=== PATIENT | female | born 1935 | race Caucasian/White ===

== ENCOUNTER 2016-08-23 15:40 | Emergency (ER) | payer MEDICARE, BC ==
--- NOTE | 2016-08-23 17:27 | ED ---
Extremity Problem HPI - General Chief complaint: Extremity Problem,Nontraumatic Stated complaint: sciatica Time Seen by Provider: 08/23/16 17:04 Source: patient Mode of arrival: wheelchair Limitations: physical limitation - History of Present Illness Initial comments: Patient is an 81-year-old female with a past medical history of chronic sciatica for which she's been on gabapentin for 10 years as well as chronic arthritis for which she is followed with multiple orthopedic surgeons with consideration of left knee replacement in the near future. Patient presents to the emergency department from her PCPs office today for evaluation of worsening left knee pain. Patient states that due to her chronic diarrhea she has been resistant to the idea of having surgery because she is concerned about how she will care for herself in the postoperative period. Patient states that over the past few months for sciatica has been chronically worsening, she has seen her primary care physician and her gabapentin dose is been increased. However patient reports that she suffers from chronic sciatica pain. The pain is unchanged in quality and persists. The pain as a burning that radiates from her left buttock down to her leg. Patient reports she is followed closely with her PCP for this pain. Reports that she is concerned that no one is addressing the pain due to her sciatica because of her knee, she feels that her primary care and her orthopedic surgeons are all focused on convincing her to have a knee replacement. However she doesn't feel that anybody is addressed her sciatic pain. Patient states she saw her primary care physician earlier today they became concerned that her knee seemed to be angled and told her to come to the emergency department for x-rays. - Related Data Home Medications Medication Instructions Recorded Confirmed Celecoxib [CeleBREX] 200 mg PO DAILY 04/13/15 08/23/16 Hair Skin And Nails 1 tab PO BID 04/13/15 08/23/16 Acetaminophen [Tylenol] 500 mg PO Q4-6H PRN 08/23/16 08/23/16 Gabapentin [Neurontin] 400 mg PO TID 08/23/16 08/23/16 Hydrochlorothiazide 25 mg PO DAILY 08/23/16 08/23/16 Allergies Allergy/AdvReac Type Severity Reaction Status Date / Time amoxicillin trihydrate Allergy Unknown Verified 08/23/16 16:52 [From Augmentin] potassium clavulanate Allergy Unknown Verified 08/23/16 16:52 [From Augmentin] NARCOTICS Allergy Unknown Uncoded 08/23/16 17:13 Review of Systems ROS Statement: Those systems with pertinent positive or pertinent negative responses have been documented in the HPI. ROS Other: All systems not noted in ROS Statement are negative. Constitutional: Denies: fever, chills Eyes: Denies: vision change Respiratory: Denies: cough, dyspnea Cardiovascular: Denies: chest pain, palpitations Endocrine: Denies: fatigue Gastrointestinal: Reports: diarrhea (Patient reports approximately 7 bowel movements daily, this is chronic and normal for her). Denies: nausea, vomiting Genitourinary: Denies: dysuria, frequency Musculoskeletal: Reports: as per HPI, back pain, arthralgia Skin: Denies: rash, lesions Neurological: Denies: headache, weakness, numbness Psychiatric: Denies: depression Hematological/Lymphatic: Denies: easy bleeding, easy bruising Past Medical History Past Medical History: Osteoarthritis (OA) Additional Past Medical History / Comment(s): radiation tc to thyroid in past, uti, sciatica, pt stated after her hysteretomy sx she was told they had to restart her heart. History of Any Multi-Drug Resistant Organisms: None Reported Past Surgical History: Bowel Resection, Hernia Repair, Hysterectomy, Orthopedic Surgery Additional Past Surgical History / Comment(s): lt hand sx took bone from rt hip to use to make new pinky, oral sx, noncancerous lump removed lt face, sandi cataracts, lt benign lump removed from lt breast. Past Anesthesia/Blood Transfusion Reactions: No Reported Reaction Past Psychological History: No Psychological Hx Reported Smoking Status: Never smoker Past Alcohol Use History: Occasional Past Drug Use History: None Reported - Past Family History Mother Family Medical History: Diabetes Mellitus Father Family Medical History: CVA/TIA, Diabetes Mellitus General Exam Limitations: physical limitation General appearance: alert, in no apparent distress Head exam: Present: atraumatic, normocephalic, normal inspection Eye exam: Present: normal appearance, PERRL, EOMI. Absent: scleral icterus, conjunctival injection, periorbital swelling ENT exam: Present: mucous membranes moist Neck exam: Absent: meningismus Respiratory exam: Absent: normal lung sounds bilaterally, respiratory distress Cardiovascular Exam: Present: normal rhythm GI/Abdominal exam: Present: soft. Absent: distended Rectal exam: Present: deferred Extremities exam: Present: normal capillary refill, joint swelling. Absent: pedal edema, calf tenderness Left Hip exam: Absent: crepitus Upper Leg exam: Absent: tenderness, swelling, abrasion, laceration, ecchymosis Knee exam: Present: crepitus, effusion, full knee extension. Absent: abrasion, laceration, ecchymosis, erythema Lower Leg exam: Absent: erythema, palpable cord Neurovascular tendon exam: Absent: abnormal cap refill, sensory deficit, extremity cold to touch, pallor, foot drop Gait: antalgic Back exam: Present: other (kyphosis) Neurological exam: Present: alert, oriented X3 Psychiatric exam: Present: normal affect Skin exam: Present: warm, dry, intact, normal color. Absent: rash Course Vital Signs 08/23/16 15:42 Temperature 97.5 F L Pulse Rate 102 H Respiratory 20 Rate Blood Pressure 129/67 O2 Sat by Pulse 98 Oximetry - Reevaluation(s) Reevaluation #1: Patient reevaluated after x-rays, x-ray results were discussed with the patient. For instance she is feeling at her baseline. Is eager for discharge home 08/23/16 19:06 Medical Decision Making - Medical Decision Making Patient was seen and evaluated History was provided by patient Physical exam with a left knee effusion, chronic changes of the bilateral feet and knees consistent with severe osteoarthritis. Chronic changes of hands consistent with severe arthritis Patient with no acute complaints or findings Will evaluate with an x-ray of the left knee X-ray reveals significant degenerative changes no acute fractures or dislocations Results were discussed with the patient Had a long conversation with the patient regarding the need to follow up with primary care as well as orthopedics. Patient states upset that nobody has addressed her sciatica and orthopedic surgeon seemed to be eager to operate on her. I advised the patient that it is possible her antalgic gait is worsening her hip pain and sciatic symptoms. I advised her to discuss this with her primary care and orthopedic surgeons. states she has been compliant with her medications but continues to experience sciatica, she does state that she was previously doing physical therapy for sciatica, however she reports that she had stopped doing the exercises after her symptoms improved previously. Patient reports that she talk to her orthopedic surgeons who advised her to avoid exercise or walking too much and so she has not resumed doing any sciatica physical therapy or exercises. Patient does state that she can do all of the exercises from a sitting position, none of them involves standing or squatting. I advised the patient to follow up with her primary care provider to discuss whether or not it would be safe for her to resume her sciatica exercises as these seem to improve her symptoms in the past. I advised her that she may benefit from formal physical therapy again, patient is resistant to this that she feels as though she has done it enough times to do on her own. All questions pertaining to care were answered to the best of my ability and the patient was discharged home with planned follow-up primary care and orthopedics for treatment of her chronic arthritis pain. Disposition Clinical Impression: Arthritis, Sciatica Disposition: HOME SELF-CARE Condition: Good Instructions: Osteoarthritis (ED), Sciatica (ED) Referrals: Vianca Saeed MD [Primary Care Provider] - 1-2 days
--- NOTE | 2016-08-23 18:45 | XR ---
EXAMINATION TYPE: XR knee 4V LT DATE OF EXAM: 08/23/2016 COMPARISON: NONE HISTORY: Pain without known injury TECHNIQUE: 4 views FINDINGS: There is end-stage joint space narrowing of the lateral compartment with [id number] and s ubchondral sclerosis and osteophytic spur formation, in addition to apex medial angulation at the fem oral tibial articulation. It is also evident intra-articular ossified loose bodies. The anterior compartment shows moderate-marked osteoarthritis changes. There is no fracture and no malalignment. IMPRESSION: Marked degenerative abnormalities.
[2016-08-23 19:50] VITALS: BP 144/66; PULSE 83; RESP 18; TEMP 97.9
== END 2016-08-23 19:50 | disposition home or self-care (01) ==
LOC: EC 15:40
DX: M17.0 Bilateral primary osteoarthritis of knee (principal); M19.071 Primary osteoarthritis, right ankle and foot; M19.072 Primary osteoarthritis, left ankle and foot; M19.041 Primary osteoarthritis, right hand; M19.042 Primary osteoarthritis, left hand; M54.32 Sciatica, left side; M40.209 Unspecified kyphosis, site unspecified; Z79.1 Long term (current) use of non-steroidal anti-inflammatories (NSAID); Z79.899 Other long term (current) drug therapy; Z88.0 Allergy status to penicillin; Z88.5 Allergy status to narcotic agent; Z98.890 Other specified postprocedural states
CPT/HCPCS: 99283

== ENCOUNTER → 2016-12-25 | Outpatient (CLI) | payer MEDICARE, BC ==
[~2016-12-25] MED LIST: REGADENOSON 0.4 MG/5 ML SYRINGE IV ONE
--- NOTE | 2016-12-25 12:29 | EST ---
EXERCISE STRESS AGE: 81 SEX: F HT: 64" WT: 140 PROTOCOL: Lexiscan Cardiolite Stress Test HEART RATE REST: 70 BLOOD PRESSURE REST: 136/77 MAXIMUM HEART RATE ACHIEVED: 102 MAXIMUM BLOOD PRESSURE: 127/69 85% MPHR: 117 100% MPHR: 138 INDICATIONS: Preoperative. CLINICAL INFORMATION: Patient was given Lexiscan injection over a period of 15 seconds. Peak heart rate of 102 was achieved, maximum blood pressure of 127/69 mmHg was noted. Resting EKG shows normal sinus rhythm with normal MO interval and QRS duration and normal ST-T waves. No ST-segment depression suggestive of ischemia was noted. The results of the nuclear study will follow. MMAILYN / BARRYN: [id number] /
--- NOTE | 2016-12-25 13:32 | NM ---
EXAMINATION TYPE: NM stress lexiscan cardiolite DATE OF EXAM: 12/25/2016 COMPARISON: NONE HISTORY: Abnormal EKG and cough per order. Additional symptoms of difficulty in breathing and palpita tions per patient. TECHNIQUE: After the intravenous administration of 10.3 mCi Tc 99m Sestamibi - Cardiolite resting SP ECT images acquired 50 minutes post injection. The patient received 0.4mg Lexiscan, 29.4 mCi Tc 99m Sestamibi - Stress images obtained [address] injection FINDINGS: Review of stress and rest SPECT images demonstrates no distinct perfusion abnormality. Gated analysi s shows normal wall motion with an estimated left ventricular ejection fraction of 72 %. IMPRESSION: No scintigraphic evidence for reversible ischemia.
== END | disposition home or self-care (01) ==
LOC: RADNMMAIN 09:01
PROVIDERS: ATTEND Internal Medicine
DX: Z01.810 Encounter for preprocedural cardiovascular examination (principal); R94.31 Abnormal electrocardiogram [ECG] [EKG]; R06.02 Shortness of breath
CPT/HCPCS: 94726; 94729; 94060; 93017; 78452; A9500; J2785; 36415; 80053; 81001; 85027; 85610; 85730; 87070

== ENCOUNTER → 2016-12-25 | Outpatient (CLI) | payer MEDICARE, BC ==
[2016-12-25 11:56] LABS: CH 29.7; CHCM 32.3; HCT 46.1 % (34.0-46.0); HDW 2.45; HGB 14.7 gm/dL (11.4-16.0); MCH 29.4 pg (25.0-35.0); MCHC 31.8 g/dL (31.0-37.0); MCV 92.4 fL (80.0-100.0); Mean Platelet Volume 7.3; RBC 4.99 m/uL (3.80-5.40); RDW 13.4 % (11.5-15.5); WBC 6.4 k/uL (3.8-10.6)
[2016-12-25 12:09] LABS: Partial Thromboplastin Time 24.7 sec (22.0-30.0)
[2016-12-25 12:17] LABS: ALT 25 U/L (9-52); AST 25 U/L (14-36); Alkaline Phosphatase 83 U/L (38-126); Anion Gap 9 mmol/L; Blood Urea Nitrogen 16 mg/dL (7-17); Calcium 9.6 mg/dL (8.4-10.2); Carbon Dioxide 25 mmol/L (22-30); Chloride 105 mmol/L (98-107); Glucose 103 mg/dL (74-99); Non-African American GFR(MDRD) >60 (>60 ml/min/1.73 sqM); Potassium 3.8 mmol/L (3.5-5.1); Sodium 139 mmol/L (137-145); Total Bilirubin 0.6 mg/dL (0.2-1.3); Total Protein 6.6 g/dL (6.3-8.2)
[2016-12-25 12:52] LABS: Appearance,Urine Cloudy (Clear)
[2016-12-25 12:53] LABS: Bilirubin,Urine Negative (Negative); Glucose,Urine (UA) Negative (Negative); Protein,Urine 1+ (Negative)
[2016-12-25 12:54] LABS: Leukocyte Esterase,Urine Large (Negative); Nitrite,Urine Positive (Negative); Specific Gravity,Urine 1.005 (1.001-1.035); UA Billing (MACRO vs. MICRO) MICRO; Urobilinogen,Urine 0.2 mg/dL (<2.0)
[2016-12-25 13:02] LABS: RBC,Urine 5 /hpf (0-5); WBC,Urine 25 /hpf (0-5)
[2016-12-25 13:03] LABS: Bacteria,Urine Many /hpf; Squamous Epithelial Cell,Urine 15 /hpf (0-4)
== END | disposition home or self-care (01) ==
LOC: LABPAT 11:29
PROVIDERS: ATTEND Orthopaedic Surgery
DX: Z01.812 Encounter for preprocedural laboratory examination (principal)
CPT/HCPCS: 36415; 80053; 81001; 85027; 85610; 85730; 87070

== ENCOUNTER → 2017-02-18 | Outpatient (CLI) | payer MEDICARE, BC ==
[2017-02-18 15:45] LABS: Iron Saturation 21.69 (12.00-45.00)
== END | disposition home or self-care (01) ==
LOC: LABWHC1 09:37
PROVIDERS: ATTEND Internal Medicine
DX: D64.9 Anemia, unspecified (principal); E55.9 Vitamin D deficiency, unspecified; I10 Essential (primary) hypertension
CPT/HCPCS: 36415; 82306; 83540; 83550

== ENCOUNTER → 2017-02-18 | Outpatient (CLI) | payer MEDICARE, BC ==
[2017-02-18 10:49] LABS: HCT 45.1 % (34.0-46.0); HGB 14.5 gm/dL (11.4-16.0); MCH 29.2 pg (25.0-35.0); MCHC 32.1 g/dL (31.0-37.0); MCV 91.1 fL (80.0-100.0); Mean Platelet Volume 6.5; Platelet Count 289 k/uL (150-450); RBC 4.96 m/uL (3.80-5.40); RDW 13.7 % (11.5-15.5); WBC 5.3 k/uL (3.8-10.6)
[2017-02-18 10:55] LABS: Partial Thromboplastin Time 23.6 sec (22.0-30.0); Prothrombin Time 9.6 sec (9.0-12.0)
[2017-02-18 10:59] LABS: ALT 27 U/L (9-52); AST 20 U/L (14-36); Albumin 4.3 g/dL (3.5-5.0); Alkaline Phosphatase 87 U/L (38-126); Anion Gap 8 mmol/L; Blood Urea Nitrogen 15 mg/dL (7-17); Calcium 9.8 mg/dL (8.4-10.2); Carbon Dioxide 28 mmol/L (22-30); Chloride 100 mmol/L (98-107); Glucose 114 mg/dL (74-99); Potassium 4.4 mmol/L (3.5-5.1); Sodium 136 mmol/L (137-145); Total Bilirubin 0.5 mg/dL (0.2-1.3); Total Protein 6.8 g/dL (6.3-8.2)
[2017-02-18 12:10] LABS: Appearance,Urine Clear (Clear); Bilirubin,Urine Negative (Negative); Blood,Urine Negative (Negative); Color,Urine Yellow; Glucose,Urine (UA) Negative (Negative); Ketones,Urine Negative (Negative); Leukocyte Esterase,Urine Trace (Negative); Mucus,Urine Rare /hpf; Nitrite,Urine Negative (Negative); PH, Urine 6.5 (5.0-8.0); Protein,Urine Negative (Negative); Specific Gravity,Urine 1.013 (1.001-1.035); Squamous Epithelial Cell,Urine <1 /hpf (0-4); Urobilinogen,Urine <2.0 mg/dL (<2.0); WBC,Urine 1 /hpf (0-5)
== END | disposition home or self-care (01) ==
LOC: LABPAT 09:39
PROVIDERS: ATTEND Orthopaedic Surgery
DX: Z01.818 Encounter for other preprocedural examination (principal); Z01.812 Encounter for preprocedural laboratory examination
CPT/HCPCS: 36415; 80053; 81001; 82306; 83540; 83550; 85027; 85610; 85730; 87070; 93005

== ENCOUNTER 2017-03-05 09:50 | Inpatient (IN) | payer MEDICARE, BC ==
[2017-02-20 17:13] VITALS: BMI 24.0
[~2017-03-05 09:50] MED LIST changes: +ACETAMINOPHEN TAB 500 MG TAB PO ONE; +LIDOCAINE 1% 20 ML VIAL (10MG/ML) FOR IV START INTRADERMA PRN; +MELOXICAM 7.5 MG TAB PO ONE; +ONDANSETRON 4 MG/2 ML VIAL IVP ONE; -REGADENOSON 0.4 MG/5 ML SYRINGE IV ONE; +ROPIVACAINE 246.25 MG, EPINEPHrine 0.5 MG, KETOROLAC 30 MG, cloNIDine HCL/PF 80 MCG, WA... MISCELLANE ONE; +TRANEXAMIC ACID 1,000 MG in SODIUM CHLORIDE 0.9% 50 ML IVPB ONE; +ceFAZolin IN SWFI 2 GM/20 ML SYRINGE IVP ONE; +fentaNYL (PF) 50 MCG/ML 2 ML AMP IV PRN
[2017-03-05] MEDS: LACTATED RINGERS 1,000 ML IV SCH (10:28)
[2017-03-05] MEDS ORDERED: DEXAMETHASONE SOD PHOS (MDV) 100 MG/10 ML VIAL IV ONE (10:30)
[2017-03-05] MEDS ORDERED: MIDAZOLAM 2 MG/2 ML VIAL IV ONE (10:54)
[2017-03-05] MEDS ORDERED: ROPIVACAINE 1,100 MG, SODIUM CHLORIDE 0.9% 330 ML MISCELLANE PRN ×2 (11:10)
--- NOTE | 2017-03-05 11:10 | P.ONQ ---
Anesthesiology Proc Note - PNB - Peripheral Nerve Block Performed Right Adductor Canal Infusion Time Out Performed: Yes Procedure Start Time: 10:52 Procedure Stop Time: 11:00 Indication: Acute Post-Operative Pain, Requested by physician Sedation Type: Sedate with meaningful contact maintained Preparation: Sterile Dressing Position: Supine Catheter: Indwelling Needle Types: On-Q Needle Size: 100mm (4") Needle Gauge: 20 Technique: Ultrasound Injectate: 0.5% Ropivacaine (see comment for volume) (ropi .5% 20cc) Blood Aspirated: No Pain Paresthesia on Injection Noted: No Resistance on Injection: Normal Events: Uneventful and Well Tolerated
[2017-03-05] MEDS ORDERED: fentaNYL (PF) 50 MCG/ML 2 ML AMP ONE (11:49)
[2017-03-05] MEDS ORDERED: TRANEXAMIC ACID 1,000 MG/10 ML VIAL ONE (11:49)
[2017-03-05] MEDS ORDERED: MIDAZOLAM 2 MG/2 ML VIAL ONE (11:49)
[2017-03-05] MEDS ORDERED: SODIUM CHLORIDE 0.9% 100 ML BAG ONE (11:49)
[2017-03-05] MEDS ORDERED: ceFAZolin 1,000 MG in SODIUM CHLORIDE 0.9% 1,000 ML IRRIGATION ONE ×4 (11:49)
[2017-03-05] MEDS ORDERED: PHENYLEPHRINE-0.9% NACL SYG 1 MG/10 ML SYRINGE ONE (11:49)
[2017-03-05] MEDS ORDERED: NA PHOS,M-B/NA PHOS,DI-BA 133 ML ENEMA RECTAL PRN (11:52)
[2017-03-05] MEDS ORDERED: MAGNESIUM HYDROXIDE 2,400 MG/10 ML CUP PO PRN (11:52)
[2017-03-05] MEDS ORDERED: ONDANSETRON 4 MG/2 ML VIAL IVP PRN (11:52)
[2017-03-05] MEDS ORDERED: traMADol 50 MG TAB PO PRN (11:52)
[2017-03-05] MEDS ORDERED: BISACODYL 10 MG SUPP RECTAL PRN (11:52)
[2017-03-05] MEDS ORDERED: hydrOXYzine PAMOATE 25 MG CAP PO PRN (11:52)
[2017-03-05] MEDS ORDERED: DIAZEPAM 5 MG TAB PO PRN ×2 (11:52)
[2017-03-05] MEDS ORDERED: HYDROmorphone 0.5 MG/0.5 ML SYRINGE IVP PRN ×3 (11:52)
[2017-03-05] MEDS ORDERED: NALOXONE 0.4 MG/ML 1 ML VIAL IV PRN (11:52)
[2017-03-05] MEDS ORDERED: HYDROmorphone 2 MG/ML 1 ML SYRINGE IVP PRN (11:52)
--- NOTE | 2017-03-05 13:12 | P.OP ---
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 The articulation is Oxinium on polyethylene. Anesthesia: spinal Surgeon: Curt Monroy [employer]orer [employer]: Cindy Palmer Estimated Blood Loss (ml): 50 Pathology: other (Bone and cartilage) Condition: stable Disposition: PACU Indications for Procedure: After failure of conservative treatment we discussed the surgical and nonsurgical treatment options at length. Patient wishes to proceed with a total knee arthroplasty. Complications specific to this procedure were discussed at length, including but not limited to infection, bleeding, stiffness , and nerve injury. Patient is aware of all these complications and informed consent was obtained Operative Findings: The operative findings are consistent with severe osteoarthritis of the left knee with a severe valgus deformity Description of Procedure: Patient was seen in the preoperative area consent was reviewed and operative site was marked with a skin marker. Patient was then brought to the operating room and given preoperative antibiotics intravenously. A spinal anesthetic was administered by the anesthesia department. A tourniquet was placed on the upper thigh and the lower extremity was prepped and draped in usual sterile fashion. A gram of transexamic acid was given. A universal timeout was then performed which confirmed the patient's name, surgical site, ALLERGIES, and consent. The lower extremity was then exsanguinated and tourniquet was inflated to 250 mmHg. A standard and anterior midline approach to the knee was performed. The skin and subcutaneous tissue was dissected down to the patellar tendon. A medial parapatellar arthrotomy was then performed. The knee was then extended, the patellar was everted, and the knee was again flexed. Anterior horns of both menisci were excised, and a minimal medial release was performed because of the valgus deformity of the knee.. On gross visual inspection, there was complete loss of articular cartilage in all 3 compartments of the knee. There was also significant cartilage damage in the lateral compartment. There were multiple periarticular osteophytes which were then removed with a Ronguer. The femoral canal was then opened with the appropriate drill, and the intramedullary femoral cutting guide was then placed and set for 4 of valgus. The distal femoral cutting block was then pinned in place, and the distal femur was then cut. The cutting block was then removed and the cut was checked for flatness. Next, the sizing guide was then placed and set for 3 external rotation based off of the epicondylar axis and Whitesides line. After the femur was sized, the appropriate 4-in-1 cutting block was then pinned in place. The anterior condyles were cut without notching. The posterior and chamfer cuts were performed while protecting the collateral ligaments. The cutting block was then removed. Attention was then directed to the tibia. The remaining ACL was removed with a Ronguer, and the tibia was then gently subluxed forward with a large bent knee retractor. Any remaining menisci was excised. The posterior lateral corner was cauterized in order to cauterize the lateral geniculate artery. The extra medullary tibial cutting guide was then placed, set for the appropriate rotation , slope, and depth of resection. The proximal tibia cutting guide was then pinned in place. Proximal tibia was then cut and sized. The femoral trial was then placed. Next trials were then placed with the appropriate-sized insert. The knee was able to fully extend and flex to 130 and was stable throughout all range of motion. The knee was then extended, patella everted. Patella was then measured, and then using an osteotomy guide, the patella was cut at the appropriate level. The patella was then measured and drilled and the patella trial was then placed. The knee was then taken through range of motion with the patella trial and the patella tracked normally. The knee was then extended patella trial was then removed and the patella was everted. Knee was then flexed and lug holes were drilled through the femoral trial and the femoral trial was then removed. The tibial was then exposed, and the tibial broach guide was then pinned in place after it was set for the appropriate rotation to allow for the most coverage without overhang. The tibia was then broached. The cut surfaces of bone were then irrigated with pulsatile lavage. The posterior structures were injected with the ropivacaine solution. The components were then opened, the cement was mixed, and the components were then cemented in place. The cement was allowed to harden with the knee in full extension. While the cement was hardening, the remaining soft tissues were injected with the ropivacaine solution. After the cemented hardened. The tourniquet was released, and hemostasis was obtained. A second gram of transexamic acid was given. The knee was again irrigated. The knee was again taken through range of motion and found to be stable throughout all range of motion of 0-130, and the patella tracked normally. The fascia was then closed with #2 strata fix suture. The subcutaneous tissue was closed with 3-0 Vicryl and 3-0 strata fix. Dermabond glue was used for the skin, and the patient was placed in a sterile silver dressing. Patient was then transferred to recovery room in stable condition. The study assistant ALLAN Robles was required due the complexity surgery and the need for a skilled surgical forceps fabricator. She assisted in positioning, draping, retraction, and closure of the woundclosure of the wound.
--- NOTE | 2017-03-05 14:10 | XR ---
EXAMINATION TYPE: XR knee limited RT DATE OF EXAM: 03/05/2017 COMPARISON: NONE TECHNIQUE: Two views submitted HISTORY: Post op FINDINGS: There is a prosthetic knee in near anatomic alignment. There is soft tissue edema and emphysema. IMPRESSION: 1. Postoperative change. Appears in near-anatomic alignment
--- NOTE | 2017-03-05 18:03 | P.CONS ---
History of Present Illness - Reason for Consult Consult date: 03/05/17 Medical management - Chief Complaint Right knee pain - History of Present Illness 81-year-old female patient with chronic stable medical conditions including skin cancer, hypertension, osteoarthritis who presented today for right total knee arthroplasty, conservative management was tried and failed to control patient's symptoms. Patient just had the surgery done, currently she denied having any pain. Express some concerns regarding narcotic use and history of bowel obstruction. No chest pain , shortness of breath, palpitations nausea or vomiting. She is hungry and asking for food. Hospitalist service has been consulted for medical management of patient's chronic conditions. Review of Systems 12 point review of system performed, negative except HPI. Past Medical History Past Medical History: Hypertension, Osteoarthritis (OA) Additional Past Medical History / Comment(s): Has "short bowel" r/t resection, has very bad time with narcotics and if has constipation only enema's will help. Hx radiation tx to thyroid in past, sciatica, pt stated after her hysterectomy sx she was told they had to restart her heart. History of Any Multi-Drug Resistant Organisms: None Reported Past Surgical History: Bowel Resection, Hernia Repair, Hysterectomy, Joint Replacement, Orthopedic Surgery Additional Past Surgical History / Comment(s): left total knee, lt hand sx took bone from rt hip to use to make new pinky, oral sx, noncancerous lump removed lt face, sandi cataracts, lt benign lump removed from lt breast. Past Anesthesia/Blood Transfusion Reactions: Previous Problems w/ Anesthesia Additional Past Anesthesia/Blood Transfusion Reaction / Comm: heart stopped & had to be restarted after hyst per pt. Past Psychological History: No Psychological Hx Reported Smoking Status: Never smoker Past Alcohol Use History: Rare Past Drug Use History: None Reported - Past Family History Mother Family Medical History: Diabetes Mellitus Father Family Medical History: CVA/TIA, Diabetes Mellitus Medications and Allergies Home Medications Medication Instructions Recorded Confirmed Type Celecoxib [CeleBREX] 200 mg PO DAILY 04/13/15 03/05/17 History Hydrochlorothiazide 25 mg PO DAILY 08/23/16 03/05/17 History Gabapentin [Neurontin] 300 mg PO TID 01/08/17 03/05/17 History Aspirin 325 mg PO BID #60 tab 01/09/17 03/05/17 Rx Albuterol Sulfate [Proair Hfa] 1 - 2 puff INHALATION RT-BID PRN 03/04/17 History Allergies Allergy/AdvReac Type Severity Reaction Status Date / Time amoxicillin trihydrate Allergy Nausea & Verified 03/05/17 17:05 [From Augmentin] Vomiting & Diarrhea/DEHYDRATION potassium clavulanate Allergy Nausea & Verified 03/05/17 17:05 [From Augmentin] Vomiting & Diarrhea/DEHYDRATION tramadol AdvReac SEVERE Verified 03/05/17 17:05 BOWEL BLOCKAGE NARCOTICS AdvReac "SEVERE Uncoded 03/05/17 10:24 bowel blockage" Physical Exam Vitals: Vital Signs Temp Pulse Resp BP Pulse Ox 03/05/17 16:00 76 16 127/60 97 03/05/17 15:30 77 16 130/57 99 03/05/17 15:15 64 18 122/74 96 03/05/17 14:45 78 16 123/57 98 03/05/17 14:30 79 16 98/53 98 03/05/17 14:15 71 16 97/53 98 03/05/17 14:00 69 16 95/53 98 03/05/17 13:45 69 16 95/53 03/05/17 13:34 97.0 F L 70 18 93/50 98 03/05/17 11:46 72 16 96/52 98 03/05/17 11:34 73 16 89/56 99 03/05/17 11:10 78 16 96/57 96 03/05/17 10:18 98.2 F 91 16 118/65 97 Intake and Output 03/05/17 03/05/17 03/05/17 06:59 14:59 22:59 Intake Total 802 Output Total 50 Balance 752 Intake: IV 802 Output: Estimated Blood Loss 50 Other: Weight 63.503 kg Patient Weight 03/06/17 06:59 Weight 63.503 kg Constitutional: No acute distress, conversant, pleasant Eyes:Anicteric sclerae, moist conjunctiva, no lid-lag, PERRLA, ENMT: Oropharynx clear, no erythema, exudates Neck: Supple, FROM, no masses, or JVD, No carotid bruits, No thyromegaly Lungs: Clear to auscultation, Clear to percussion, Normal respiratory effort, no accessory muscle use Cardiovascular: Heart regular in rate and rhythm, No murmurs, gallops, or rubs, No peripheral edema Abdominal: Soft, Nontender, no guarding, rebound or rigidity, Normoactive bowel sounds, No hepatomegaly, No splenomegaly, No palpable mass Skin: Normal temperature, tone, texture, turgor, no induration, No subcutaneous nodules, No rash, lesions, No ulcers Extremities: surgical dressings over the right knee, no digital cyanosis, No clubbing, Pedal pulses intact and symmetrical, Radial pulses intact and symmetrical, No calf tenderness Psychiatric: Alert and oriented to person, place and time, appropriate affect, intact judgement Neuro: Muscles Strength 5/5 in all 4 extremities, Sensation to light touch grossly present throughout, Cranial nerves II-XII grossly intact, no focal sensory deficits Assessment and Plan Plan: 1. Right total knee arthroplasty: Per your surgical management Pain control with meloxicam. Aspirin 325mg po bid for DVT prophylaxis. Physical therapy. 2. Essential hypertension: BP controlled Continue home meds. 3. Primary osteoarthritis of multiple joints bilateral/Chronic Sciatic nerve pain: Meloxicam as above.
[2017-03-05] MEDS: SENNOSIDES-DOCUSATE SODIUM 1 EACH TAB PO SCH (20:35)
[2017-03-05] MEDS: ASPIRIN 325 MG TAB PO SCH (20:35)
[2017-03-05] MEDS: ceFAZolin IN SWFI 2 GM/20 ML SYRINGE IVP SCH (20:35)
[2017-03-06] MEDS: LACTATED RINGERS 1,000 ML IV SCH (04:29)
[2017-03-06] MEDS: ceFAZolin IN SWFI 2 GM/20 ML SYRINGE IVP SCH (04:29)
[2017-03-06] MEDS: SODIUM CHLORIDE 0.9% 1,000 ML IV SCH ×2 (04:30→12:15)
--- NOTE | 2017-03-06 07:12 | P.PN ---
Progress Note - Text Progress Note Date: 03/06/17 Patient is a 81 y.o s/p Right knee replacement PO day 1. Patient had Adductor canal catheter placed for post op pain control. Patient going well. VAS 5/10. Taking oral pain medication. Ambulating without weakness.
[2017-03-06 07:57] LABS: Basophils % (A) 0 %; Eosinophils # (A) 0.1 k/uL (0-0.7); Eosinophils % (A) 1 %; HCT 39.4 % (34.0-46.0); HGB 12.6 gm/dL (11.4-16.0); Lymphocytes # (A) 1.5 k/uL (1.0-4.8); Lymphocytes % (A) 11 %; MCH 29.2 pg (25.0-35.0); MCV 91.1 fL (80.0-100.0); Mean Platelet Volume 7.7; Monocytes # (A) 0.6 k/uL (0-1.0); Monocytes % (A) 4 %; Neutrophils # (A) 11.4 k/uL (1.3-7.7); Neutrophils % (A) 83 %; Platelet Count 230 k/uL (150-450); RBC 4.32 m/uL (3.80-5.40); RDW 14.6 % (11.5-15.5); WBC 13.7 k/uL (3.8-10.6)
--- NOTE | 2017-03-06 08:50 | P.PN ---
Subjective Progress Note Date: 03/06/17 This is an 81-year-old female who is status post right total knee arthroplasty. This is postoperative day #1. Patient states her pain is well-controlled. Patient states she has not been up and out of bed yet. Patient denies any fever/ chills, abdominal pain, shortness of breath, numbness, weakness or tingling. Objective - Vital Signs Vital signs: Vital Signs Temp 97.9 F 03/06/17 07:30 Pulse 86 03/06/17 07:30 Resp 14 03/06/17 07:30 BP 111/68 03/06/17 07:30 Pulse Ox 97 03/06/17 07:30 Intake & Output 03/05/17 03/06/17 03/06/17 18:59 06:59 18:59 Intake Total 802 1520 Output Total 150 Balance 652 1520 Weight 63.503 kg Intake: IV 802 Intake, IV Titration 1040 Amount Sodium Chloride 0.9% 1, 1040 000 ml @ 65 mls/hr IV . [id number] [facility] Rx#:[id number] Other 480 Output: Urine 100 Estimated Blood Loss 50 Other: # Voids 3 - Exam Vital signs are stable. Patient is in no acute distress and is alert and oriented 3. Calf is soft and nontender. Dressing is clean, dry, and intact. Neurovascular status intact. Patient has full foot and ankle motion without difficulty. - Labs CBC & Chem 7: 03/06/17 07:28 Labs: Abnormal Lab Results - Last 24 Hours (Table) 03/06/17 Range/Units 07:28 WBC 13.7 H (3.8-10.6) k/uL Neutrophils # 11.4 H (1.3-7.7) k/uL Assessment and Plan (1) Primary osteoarthritis of right knee Current Visit: Yes Status: Acute Code(s): M17.11 - UNILATERAL PRIMARY OSTEOARTHRITIS, RIGHT KNEE SNOMED Code(s): 759100433 (2) S/P total knee arthroplasty Current Visit: Yes Status: Acute Code(s): Z96.659 - PRESENCE OF UNSPECIFIED ARTIFICIAL KNEE JOINT SNOMED Code(s): 5783991392518 Plan: #1 Continue with routine postoperative care, leave dressing in place for one week #2 Anticoagulation with aspirin. #3 Physical therapy and CPM today. #4 Appreciate input from medicine. #5 Anticipate discharge home with home care likely tomorrow..
[2017-03-06] MEDS: MELOXICAM 7.5 MG TAB PO SCH (09:52)
[2017-03-06] MEDS: ASPIRIN 325 MG TAB PO SCH ×2 (09:52→21:07)
[2017-03-06] MEDS: GABAPENTIN 300 MG CAP PO SCH ×3 (09:52→21:07)
--- NOTE | 2017-03-06 14:44 | P.PN ---
Subjective Progress Note Date: 03/06/17 Principal diagnosis: knee pain Better, no significant pain. Stated that she has been having legs swelling for 2 -3 years and no one told her why. She stated that she did have a doppler U/S in the past but that was negative for clots. Objective - Vital Signs Vital signs: Vital Signs Temp 97.9 F 03/06/17 07:30 Pulse 86 03/06/17 07:30 Resp 14 03/06/17 07:30 BP 111/68 03/06/17 07:30 Pulse Ox 97 03/06/17 07:30 Intake & Output 03/05/17 03/06/17 03/06/17 18:59 06:59 18:59 Intake Total 802 1520 65 Output Total 150 Balance 652 1520 65 Weight 63.503 kg Intake: IV 802 Intake, IV Titration 1040 65 Amount Sodium Chloride 0.9% 1, 1040 65 000 ml @ 65 mls/hr IV . [id number] [facility] Rx#:[id number] Other 480 Output: Urine 100 Estimated Blood Loss 50 Other: # Voids 3 - Exam Constitutional: No acute distress, conversant, pleasant Eyes:Anicteric sclerae, moist conjunctiva, no lid-lag, PERRLA, ENMT: Oropharynx clear, no erythema, exudates Neck: Supple, FROM, no masses, or JVD, No carotid bruits, No thyromegaly Lungs: Clear to auscultation, Clear to percussion, Normal respiratory effort, no accessory muscle use Cardiovascular: Heart regular in rate and rhythm, No murmurs, gallops, or rubs, 1+ peripheral edema Abdominal: Soft, Nontender, no guarding, rebound or rigidity, Normoactive bowel sounds, No hepatomegaly, No splenomegaly, No palpable mass Skin: Normal temperature, tone, texture, turgor, no induration, No subcutaneous nodules, No rash, lesions, No ulcers Extremities: Surgical dressings over the right knee, no digital cyanosis, No clubbing, Pedal pulses intact and symmetrical, Radial pulses intact and symmetrical, No calf tenderness Psychiatric: Alert and oriented to person, place and time, appropriate affect, intact judgement Neuro: Muscles Strength 5/5 in all 4 extremities, Sensation to light touch grossly present throughout, Cranial nerves II-XII grossly intact, no focal sensory deficits - Labs CBC & Chem 7: 01/24/18 07:28 Labs: Abnormal Lab Results - Last 24 Hours (Table) 03/06/17 Range/Units 07:28 WBC 13.7 H (3.8-10.6) k/uL Neutrophils # 11.4 H (1.3-7.7) k/uL Assessment and Plan Plan: 1. Right total knee arthroplasty: Per your surgical management Pain control with meloxicam. Aspirin 325mg po bid for DVT prophylaxis. Physical therapy. 2. Legs edema: Check bnp Check echo as outpatient. Lasix if needed. 2. Essential hypertension: BP controlled Continue home meds. 3. Primary osteoarthritis of multiple joints bilateral/Chronic Sciatic nerve pain: Meloxicam as above.
[2017-03-06] MEDS ORDERED: GABAPENTIN 300 MG CAP PO SCH (16:00)
[2017-03-06] MEDS ORDERED: ASPIRIN 325 MG TAB PO SCH (21:00)
[2017-03-06] MEDS: SENNOSIDES-DOCUSATE SODIUM 1 EACH TAB PO SCH (21:03)
[2017-03-06] MEDS: ACETAMINOPHEN TAB 325 MG TAB PO PRN (21:07)
[2017-03-07] MEDS: ACETAMINOPHEN TAB 325 MG TAB PO PRN ×2 (02:07→08:15)
[2017-03-07 08:06] VITALS: BP 120/72; PULSE 92; RESP 14; TEMP 98.3
[2017-03-07] MEDS: MELOXICAM 7.5 MG TAB PO SCH (08:15)
[2017-03-07] MEDS: GABAPENTIN 300 MG CAP PO SCH (08:15)
[2017-03-07] MEDS: ASPIRIN 325 MG TAB PO SCH (08:15)
[2017-03-07 08:28] LABS: Anion Gap 7 mmol/L; Calcium 8.5 mg/dL (8.4-10.2); Carbon Dioxide 20 mmol/L (22-30); Chloride 107 mmol/L (98-107); Glucose 88 mg/dL (74-99); Sodium 134 mmol/L (137-145)
[2017-03-07 08:29] LABS: Blood Urea Nitrogen 9 mg/dL (7-17); Phosphorus 3.1 mg/dL (2.5-4.5); Potassium 4.4 mmol/L (3.5-5.1)
[2017-03-07] MEDS ORDERED: HYDROCHLOROTHIAZIDE 25 MG TAB PO SCH (09:00)
--- NOTE | 2017-03-07 09:08 | P.DS ---
Providers Date of admission: 03/05/17 09:50 Expected date of discharge: 03/07/17 Attending physician: Curt Monroy Consults: 03/05/17 11:52 Consult Physician Routine Consulting Provider: Maryjane Goff Consult Reason/Comments: medical management Do you want consulting provider notified?: Yes Primary care physician: Stated None - Discharge Diagnosis(es) (1) Primary osteoarthritis of right knee Current Visit: Yes Status: Acute (2) S/P total knee arthroplasty Current Visit: Yes Status: Acute Hospital Course: This is a 81-year-old female with known history of degenerative arthritis of the right knee. The patient presents for evaluation. After discussion and consideration patient elects to proceed with total knee arthroplasty. The patient is seen preoperatively by Dr. Monroy and cleared for surgery. Patient is admitted to [facility] on 03/05/2017 for total knee arthroplasty. The procedures performed without complication or sequelae. The patient is doing well postoperatively. Labs and vital signs are stable on day of discharge. On day of discharge patient's knee incision is healing well. There is minimal erythema. There is no drainage noted at this time. There is minimal soft tissue swelling to the knee. Patient has full foot and ankle motion without difficulty or pain. Neurovascular status to the right lower extremity is intact. Patient is discharged home in good condition. Please see med rec for accurate list of home medications. Plan - Discharge Summary Discharge Rx Participant: No New Discharge Prescriptions: New Aspirin 325 mg PO BID #60 tab Sennosides [Senokot] 1 tab PO BID #60 tablet traMADol HCl [Ultram] 50 mg PO Q6H PRN #60 tab PRN Reason: Pain No Action Celecoxib [CeleBREX] 200 mg PO DAILY Hydrochlorothiazide 25 mg PO DAILY Gabapentin [Neurontin] 300 mg PO TID Aspirin 325 mg PO BID #60 tab Albuterol Sulfate [Proair Hfa] 1 - 2 puff INHALATION RT-BID PRN PRN Reason: Shortness Of Breath Discharge Medication List Celecoxib [CeleBREX] 200 mg PO DAILY 04/13/15 [History] Hydrochlorothiazide 25 mg PO DAILY 08/23/16 [History] Gabapentin [Neurontin] 300 mg PO TID 01/08/17 [History] Aspirin 325 mg PO BID #60 tab 01/09/17 [Rx] Albuterol Sulfate [Proair Hfa] 1 - 2 puff INHALATION RT-BID PRN 03/04/17 [ History] Aspirin 325 mg PO BID #60 tab 03/07/17 [Rx] Sennosides [Senokot] 1 tab PO BID #60 tablet 03/07/17 [Rx] traMADol HCl [Ultram] 50 mg PO Q6H PRN #60 tab 03/07/17 [Rx] Follow up Appointment(s)/Referral(s): Curt Monroy DO [Doctor of Osteopathic Medicine] - 2 Weeks Ambulatory/Diagnostic Orders: Continuous Passive Motion (CPM) Machine [DME.AMB1] Time Frame: 3 Weeks, Location : Determined By Patient Activity/Diet/Wound Care/Special Instructions: Weightbearing as tolerated with a walker CPM 5-6h daily Leave dressing intact. May be removed by home care nurse in 7 days, 03/12/2017. May shower with dressing on. [facility] with questions or concerns [phone] Discharge Disposition: HOME WITH HOME HEALTH SERVICES
[2017-03-07 09:18] LABS: Basophils % (A) 0 %; Eosinophils # (A) 0.1 k/uL (0-0.7); Eosinophils % (A) 2 %; HCT 38.2 % (34.0-46.0); HGB 12.6 gm/dL (11.4-16.0); Lymphocytes # (A) 1.5 k/uL (1.0-4.8); Lymphocytes % (A) 17 %; MCH 29.6 pg (25.0-35.0); MCHC 33.1 g/dL (31.0-37.0); MCV 89.5 fL (80.0-100.0); Mean Platelet Volume 6.8; Monocytes # (A) 0.5 k/uL (0-1.0); Monocytes % (A) 6 %; Neutrophils # (A) 6.5 k/uL (1.3-7.7); Neutrophils % (A) 75 %; Platelet Count 222 k/uL (150-450); RBC 4.27 m/uL (3.80-5.40); RDW 13.8 % (11.5-15.5); WBC 8.7 k/uL (3.8-10.6)
== END 2017-03-07 14:36 | disposition home health service (06) | DRG 470 ==
LOC: 2ORMAIN 09:50 → 3SUR 13:22
PROVIDERS: ADMIT Orthopaedic Surgery; ATTEND Orthopaedic Surgery
PROC: 0SRC069 Replacement of Right Knee Joint with Oxidized Zirconium on Polyethylene Synthetic Substitute, Cemented, Open Approach (ICD-10-PCS; principal; 2017-03-05 11:20)
DX: M17.11 Unilateral primary osteoarthritis, right knee (principal); I10 Essential (primary) hypertension; M21.061 Valgus deformity, not elsewhere classified, right knee; Z79.899 Other long term (current) drug therapy; Z88.1 Allergy status to other antibiotic agents; Z83.3 Family history of diabetes mellitus; Z72.0 Tobacco use; Z79.82 Long term (current) use of aspirin; Z90.710 Acquired absence of both cervix and uterus; Z85.828 Personal history of other malignant neoplasm of skin
CPT/HCPCS: 80048; 83735; 83880; 84100; 85025; 88300

== ENCOUNTER → 2017-12-24 | Outpatient (CLI) | payer MEDICARE, BC ==
--- NOTE | 2017-12-24 19:38 | CT ---
EXAMINATION TYPE: CT chest wo con DATE OF EXAM: 12/24/2017 COMPARISON: NONE HISTORY: Increasing SOB CT DLP: 336.3 mGycm. Automated Exposure Control for Dose Reduction was Utilized. TECHNIQUE: CT scan of the thorax is performed without IV contrast. Evaluation for pulmonary nodules limited given the high-resolution protocol and noncontiguous slices. FINDINGS: LUNGS: There is minimal bibasilar cylindrical type bronchiectasis. Subpleural reticulation is seen th roughout and addition to minimal dependent shifting subsegmental atelectasis. There is minimal biapic al nodular pleural parenchymal thickening. The lungs are grossly clear, there is no concerning parenc hymal mass or nodule identified. There is no pleural effusion or pneumothorax seen. The tracheobro nchial tree is patent. No interlobular septal thickening is seen. No honeycombing. MEDIASTINUM: Lack of IV contrast is noted to limit evaluation for mediastinal and especially hilar ad enopathy. There are no definitive greater than 1 cm hilar or mediastinal lymph nodes. No cardiomega ly or pericardial effusion is seen. OTHER: Moderate multilevel degenerative changes of the thoracic spine are noted. IMPRESSION: Mild bibasilar cylindrical type bronchiectasis. Although differential is lengthy this mos t commonly can be postinfectious without other ancillary findings. Minimal subpleural reticulation an d multifocal atelectasis are also seen. Subpleural reticulation can relate to atelectasis, the physio logic in aging independent of tobacco abuse, or could relate to less likely early fibrosis. No honeyc ombing is seen. No interstitial lung disease.
== END ==
LOC: RADCTMAIN 16:09
PROVIDERS: ATTEND Internal Medicine Critical Care Medicine
DX: J47.9 Bronchiectasis, uncomplicated (principal); Z88.8 Allergy status to other drugs, medicaments and biological substances
CPT/HCPCS: 71250

== ENCOUNTER → 2018-01-24 | Outpatient (CLI) | payer MEDICARE, BC ==
--- NOTE | 2018-01-24 14:26 | CT ---
EXAMINATION TYPE: CT sinus wo con DATE OF EXAM: 01/24/2018 COMPARISON: HISTORY: CHRONIC SINUSITIS CT DLP: 584 mGycm. Automated Exposure Control for Dose Reduction was Utilized. TECHNIQUE: CT scan of the sinuses is performed without contrast, axial images are obtained, coronal r eformatted images are also reviewed. FINDINGS: The paranasal sinuses show inflammatory change in the sphenoid with some associated calcif ication on the left, some focal sclerosis of the sphenoid sinus wall on the left shows a separate michelle mber may be due to chronic sinusitis. Visualized portion of mastoid air cells show no abnormal opacification. The globes are intact bilate rally. Cortical atrophy is likely age-related. IMPRESSION: Findings could be indicative of chronic sphenoid sinusitis.
== END ==
LOC: RADCTMAIN 13:18
PROVIDERS: ATTEND Otolaryngology
DX: J32.9 Chronic sinusitis, unspecified (principal)
CPT/HCPCS: 70486

== ENCOUNTER → 2018-12-10 | Outpatient (CLI) | payer MEDICARE, BC ==
--- NOTE | 2018-12-11 03:54 | XR ---
EXAMINATION TYPE: XR bone length study DATE OF EXAM: 12/10/2018 COMPARISON: NONE TECHNIQUE: 22 images of the bilateral lower extremities. HISTORY: 83-year-old female with a length discrepancy FINDINGS: Mild degenerative spurring of both hips. Additional degenerative change suggested at the right greate r than left SI joints. Bilateral total knee arthroplasties. There is bony fragmentation along the inferior pole of the rebollar la on the left with some thickening along the patellar tendon suggesting sequela of remote injury. Le sser degree of similar changes on the right. Bilateral ankle mortises appear intact. RIGHT: Femur: 45.4 cm Tibia: 38.6 cm Femur and tibia: 84.4 cm LEFT: Femur: 46.1 cm Tibia: 38.3 cm Femur and tibia: 84.8 cm IMPRESSION: 1. Mild degenerative changes of both hips. 2. 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 3. Overall lower extremity length discrepancy of 4 mm as measured with the left being slightly longer . The left femur measures 7 mm longer in the right tibia measures 3 mm longer.
== END | disposition home or self-care (01) ==
LOC: RADXRMAIN 14:37
PROVIDERS: ATTEND Podiatrist Foot & Ankle Surgery
DX: M16.0 Bilateral primary osteoarthritis of hip (principal)
CPT/HCPCS: 77073

== ENCOUNTER → 2018-12-10 | Outpatient (CLI) | payer MEDICARE, BC ==
[2018-12-10 21:12] LABS: Anion Gap 8.2 mmol/L (4.00-12.00); BUN/Creat Ratio 21.67 Ratio (12.00-20.00); Carbon Dioxide 24.8 mmol/L (21.6-31.8); Chol/HDL Ratio 2.77; LDL Cholesterol,Calculated 98.2 mg/dL (0.0-131.0); Potassium 3.8 mmol/L (3.5-5.5); VLDL Calculation 25.8 mg/dL (5.00-40.00)
== END ==
LOC: LABWHC1 14:34
PROVIDERS: ATTEND Physician Assistant
DX: I10 Essential (primary) hypertension (principal); E78.5 Hyperlipidemia, unspecified
CPT/HCPCS: 36415; 80048; 80061; 84443; 84481

== ENCOUNTER 2019-02-03 14:14 | Observation (INO) | payer MEDICARE, BC ==
--- NOTE | 2019-02-03 14:54 | XR ---
EXAMINATION TYPE: XR chest 2V DATE OF EXAM: 02/03/2019 COMPARISON: 04/25/2015 HISTORY: Chest pain TECHNIQUE: 2 views FINDINGS: Heart is normal. Lungs are clear of infiltrate. There is no heart failure. Thoracic aorta i s atheromatous. There is no pleural effusion. Bony thorax is intact. IMPRESSION: No active cardiopulmonary disease. No change.
[2019-02-03 15:05] LABS: Basophils % (A) 1 %; Eosinophils # (A) 0.1 k/uL (0-0.7); Eosinophils % (A) 1 %; HCT 43.2 % (34.0-46.0); HGB 15.1 gm/dL (11.4-16.0); Lymphocytes # (A) 1.9 k/uL (1.0-4.8); Lymphocytes % (A) 25 %; MCH 31.7 pg (25.0-35.0); MCV 90.6 fL (80.0-100.0); Mean Platelet Volume 7.5; Monocytes # (A) 0.4 k/uL (0-1.0); Monocytes % (A) 5 %; Neutrophils % (A) 67 %; Platelet Count 234 k/uL (150-450); RBC 4.77 m/uL (3.80-5.40); RDW 12.9 % (11.5-15.5); WBC 7.5 k/uL (3.8-10.6)
[2019-02-03 15:13] LABS: ALT 15 U/L (4-34); AST 27 U/L (14-36); African American GFR (CKD) >90 (>60 ml/min/1.73 sqM); Albumin 4.1 g/dL (3.5-5.0); Alkaline Phosphatase 88 U/L (38-126); Anion Gap 10 mmol/L; Blood Urea Nitrogen 14 mg/dL (7-17); Calcium 9.6 mg/dL (8.4-10.2); Carbon Dioxide 22 mmol/L (22-30); Chloride 106 mmol/L (98-107); Glucose 97 mg/dL (74-99); Magnesium 2.1 mg/dL (1.6-2.3); Non-African American GFR(CKD) 85 (>60 ml/min/1.73 sqM); Potassium 3.9 mmol/L (3.5-5.1); Sodium 138 mmol/L (137-145); Total Bilirubin 0.6 mg/dL (0.2-1.3); Total Protein 6.5 g/dL (6.3-8.2)
[2019-02-03 15:25] LABS: D-Dimer 0.52 mg/L FEU (<0.60); INR 0.9 (<1.2); Partial Thromboplastin Time 24.2 sec (22.0-30.0); Prothrombin Time 9.8 sec (9.0-12.0)
--- NOTE | 2019-02-03 15:34 | ED ---
Chest Pain HPI - General Chief Complaint: Chest Pain Stated Complaint: chest & arm pain Time Seen by Provider: 02/03/19 14:21 Source: patient, EMS Mode of arrival: EMS - History of Present Illness Initial Comments: 83-year-old female presenting today for chief complaint of left-sided chest pain every down left arm. Patient states that after she left [place] with her family she began to develop chest pain she describes as sharp in nature. She states it radiates to the left arm. Patient denied any radiation to the back. Patient denies any chest pressure. She states that she felt anxious at that time and slightly short of breath. Patient states that shortness of breath has resolved she states she hasn't more so chronically denies any acute changes. Patient denies any leg swelling denied any jaw pain nausea vomiting. Denies history of DVT or active cancer, denies unilateral leg swelling. Patient denies any known history of hypertension or diabetes. Lifetime nonsmoker. Patient denies any known personal history of coronary artery disease. Patient presented to the nearest urgent care where she was sent to the ER by EMS. Patient EKG in the EMS was sinus tachycardia, otherwise no noted abnormalities. Patient given 324mg of aspirin at urgent care, nitroglycerine that helped minimally in the EMS rig. - Related Data Home Medications Medication Instructions Recorded Confirmed Lifitegrast [Xiidra] 1 drop BOTH EYES HS 02/03/19 02/03/19 Vit C/E/Zn/Coppr/Lutein/Zeaxan 1 cap PO QAM 02/03/19 02/03/19 [Preservision Areds 2 Softgel] Vitalux Eye Vitamin 1 tab PO HS 02/03/19 02/03/19 cycloSPORINE 0.05% OPHTH SOLN 1 drop BOTH EYES QAM 02/03/19 02/03/19 [Restasis] Allergies Allergy/AdvReac Type Severity Reaction Status Date / Time amoxicillin trihydrate AdvReac Nausea & Verified 02/03/19 16:20 [From Augmentin] Vomiting & Diarrhea/DEHYDRATION potassium clavulanate AdvReac Nausea & Verified 02/03/19 16:20 [From Augmentin] Vomiting & Diarrhea/DEHYDRATION tramadol AdvReac SEVERE Verified 02/03/19 16:20 BOWEL BLOCKAGE NARCOTICS AdvReac "SEVERE Uncoded 02/03/19 16:20 bowel blockage" Review of Systems ROS Statement: Those systems with pertinent positive or pertinent negative responses have been documented in the HPI. ROS Other: All systems not noted in ROS Statement are negative. Past Medical History Past Medical History: Osteoarthritis (OA) Additional Past Medical History / Comment(s): radiation tc to thyroid in past, uti, sciatica, pt stated after her hysteretomy sx she was told they had to restart her heart. History of Any Multi-Drug Resistant Organisms: None Reported Past Surgical History: Bowel Resection, Hernia Repair, Hysterectomy, Orthopedic Surgery Additional Past Surgical History / Comment(s): lt hand sx took bone from rt hip to use to make new pinky, oral sx, noncancerous lump removed lt face, sandi cataracts, lt benign lump removed from lt breast. Past Anesthesia/Blood Transfusion Reactions: No Reported Reaction Additional Past Anesthesia/Blood Transfusion Reaction / Comment(s): heart stopped & had to be restarted after hyst per pt. Past Psychological History: No Psychological Hx Reported Smoking Status: Never smoker Past Alcohol Use History: Occasional Past Drug Use History: None Reported - Past Family History Mother Family Medical History: Diabetes Mellitus Father Family Medical History: CVA/TIA, Diabetes Mellitus General Exam - General Exam Comments Initial Comments: General: The patient is awake and alert, appear anxious no diaphoresis Eye: +3 mm pupils are equal, round and reactive to light, extra-ocular movements are intact. No nystagmus. There is normal conjunctiva bilaterally. No signs of icterus. Ears, nose, mouth and throat: There are moist mucous membranes and no oral lesions. Neck: The neck is supple, there is no tenderness or JVD. Cardiovascular: There is a regular rate and rhythm. No murmur, rub or gallop is appreciated. Respiratory: Lungs are clear to auscultation, respirations are non-labored, breath sounds are equal. No wheezes, stridor, rales, or rhonchi. Gastrointestinal: Soft, non-distended, non-tender abdomen without masses or organomegaly noted. There is no rebound or guarding present. Musculoskeletal: Normal ROM, no tenderness. Strength 5/5. Sensation intact. Radial pulses equal bilaterally 2+. Neurological: A&O x 3. CN II-XII intact grossly, There are no obvious motor or sensory deficits. Coordination appears grossly intact. Speech is normal. Skin: Skin is warm and dry and no rashes or lesions are noted. No LE edema. Psychiatric: Cooperative, appropriate mood & affect, normal judgment. Course Vital Signs 02/03/19 02/03/19 02/03/19 14:18 14:32 17:02 Temperature 97.5 F L Pulse Rate 82 99 Respiratory 22 22 18 Rate Blood Pressure 131/66 141/79 O2 Sat by Pulse 99 100 Oximetry Chest Pain MDM - MDM 83-year-old female presents today for chief complaint of chest pain began approximately 1 hour prior to arrival. Patient initially presented to urgent care. Described as left-sided sharp rating down the left arm. She states this occurred while ambulating. Resolved during her visit in the emergency Department patient was given aspirin and nitro prior to arrival. Patient does not appear distressed EKG no acute findings and initial troponin negative will trend. D-dimer within acceptable limits. Patient agreeable given age, description of chest pain to come in for admission and evaluation by cardiology for chest pain. Dr. Amin accepted admission. Dr. Burton agreeable to admission' Disposition Clinical Impression: Chest pain Disposition: ADMITTED IP TO THIS HOSP Condition: Stable Is patient prescribed a controlled substance at d/c from ED?: No Time of Disposition: 17:33 Decision to Admit Reason: Admit from EC Decision Date: 02/03/19 Decision Time: 15:33
[2019-02-03] MEDS ORDERED: NITROGLYCERIN SL TABS 0.4 MG TAB SUBLINGUAL PRN (15:41)
[2019-02-03 17:04] VITALS: RESP 18
[2019-02-03] MEDS ORDERED: ACETAMINOPHEN TAB 325 MG TAB PO PRN (17:12)
[2019-02-03] MEDS ORDERED: NALOXONE 0.4 MG/ML 1 ML VIAL IV PRN (17:12)
--- NOTE | 2019-02-03 17:13 | P.HPIM ---
History of Present Illness H&P Date: 02/03/19 Chief Complaint: Chest pain 83-year-old female with no PMH presents the ED for chest pain. Patient reports getting into a motor vehicle after lunch around 1 PM when this chest pain started. Pain was intermittent but occurring very frequently. Pain is 7 out of 10 in severity. Patient described the pain as sharp in nature. Patient states that the movement of her shoulder aggravated the pain. She also expressed palpitations with this chest pain. She denied any headache, lower extremity edema, nausea or vomiting, fever or chills, changes in urination or bowel habits . She does report a cough that is dry there's been ongoing for many months now. She reports decreased exercise tolerance especially when standing. Patient states that she had an appointment with Dr. Gamez when her PCP discovered that she had a high heart rate. In the ED, vital signs are stable. CBC was negative. Coagulation panel was negative. D-dimer was negative. CMP was negative. Troponin was less than 0.012, EKG showed normal sinus rhythm. Chest x-ray was negative. Patient is admitted for chest pain, rule out acute coronary syndrome with cardiology consultation. Review of Systems Pertinent positives and negatives as discussed in HPI, a complete review of systems was performed and all other systems are negative. Past Medical History Past Medical History: Osteoarthritis (OA) Additional Past Medical History / Comment(s): radiation tc to thyroid in past, uti, sciatica, pt stated after her hysteretomy sx she was told they had to restart her heart. History of Any Multi-Drug Resistant Organisms: None Reported Past Surgical History: Bowel Resection, Hernia Repair, Hysterectomy, Orthopedic Surgery Additional Past Surgical History / Comment(s): lt hand sx took bone from rt hip to use to make new pinky, oral sx, noncancerous lump removed lt face, sandi cataracts, lt benign lump removed from lt breast. Past Anesthesia/Blood Transfusion Reactions: No Reported Reaction Additional Past Anesthesia/Blood Transfusion Reaction / Comment(s): heart stopped & had to be restarted after hyst per pt. Past Psychological History: No Psychological Hx Reported Smoking Status: Never smoker Past Alcohol Use History: Occasional Past Drug Use History: None Reported - Past Family History Mother Family Medical History: Diabetes Mellitus Father Family Medical History: CVA/TIA, Diabetes Mellitus Medications and Allergies Home Medications Medication Instructions Recorded Confirmed Type Lifitegrast [Xiidra] 1 drop BOTH EYES HS 02/03/19 02/03/19 History Vit C/E/Zn/Coppr/Lutein/Zeaxan 1 cap PO QAM 02/03/19 02/03/19 History [Preservision Areds 2 Softgel] Vitalux Eye Vitamin 1 tab PO HS 02/03/19 02/03/19 History cycloSPORINE 0.05% OPHTH SOLN 1 drop BOTH EYES QAM 02/03/19 02/03/19 History [Restasis] Allergies Allergy/AdvReac Type Severity Reaction Status Date / Time amoxicillin trihydrate AdvReac Nausea & Verified 02/03/19 16:20 [From Augmentin] Vomiting & Diarrhea/DEHYDRATION potassium clavulanate AdvReac Nausea & Verified 02/03/19 16:20 [From Augmentin] Vomiting & Diarrhea/DEHYDRATION tramadol AdvReac SEVERE Verified 02/03/19 16:20 BOWEL BLOCKAGE NARCOTICS AdvReac "SEVERE Uncoded 02/03/19 16:20 bowel blockage" Physical Exam Vitals: Vital Signs Temp Pulse Resp BP Pulse Ox 02/03/19 17:02 99 18 141/79 100 02/03/19 14:32 82 22 131/66 99 02/03/19 14:18 97.5 F L 22 Intake and Output 02/03/19 02/03/19 02/03/19 06:59 14:59 22:59 Other: Weight 70.307 kg General: [non toxic], [no distress], [appears at stated age] Derm: [warm], [dry] Head: [atraumatic], [normocephalic], [symmetric] Eyes: [EOMI], [no lid lag], [anicteric sclera] Mouth: [no lip lesion], [mucus membranes moist] Cardiovascular: [S1S2 reg], [no murmur], [positive posterior tibial pulse bilateral], [chest wall nontender to palpation] Lungs: [CTA bilateral], [no rhonchi, no rales] , [no accessory muscle use] Abdominal: [soft], [ nontender to palpation], [no guarding], [no appreciable organomegaly] Ext: [no gross muscle atrophy], [no edema], [no contractures], [left shoulder restricted range of motion due to pain] Neuro: [ CN II-XI grossly intact], [no focal neuro deficits] Psych: [Alert], [oriented], [appropriate affect] Results CBC & Chem 7: 02/03/19 14:33 02/03/19 14:33 Assessment and Plan Assessment: Chest pain D-dimer negative. Low concerns for PE. Chest x-ray negative. Troponin less than 0.012 with EKG showing normal sinus rhythm. Plans: Trend troponin/EKG to rule out ACS. Telemetry monitoring. Aspirin daily. Follow cardiology consultation. DVT prophylaxis: [SCD] Discussed with: [Patient] Anticipated discharge: [1-2 days] Anticipated discharge place: [Home] A total of [35] minutes was spent on the care of this complex patient more than 50% of the time was spent in counseling and care coordination. [Patient is admitted for chest pain, rule out acute coronary syndrome. Cardiology is consulted. Likely DC 1-2 days.] Patient names her son Lorenzo decision maker if she can't make decisions for herself. Patient would like to be no code.
[2019-02-03] MEDS ORDERED: LIFITEGRAST BOTH EYES SCH (21:00)
[2019-02-04 03:03] LABS: Cholesterol 174 mg/dL (<200); HDL Cholesterol 57 mg/dL (40-60); LDL Cholesterol,Calculated 100 mg/dL (0-99); Triglycerides 87 mg/dL (<150)
[2019-02-04 07:41] VITALS: BP 109/56; PULSE 73; TEMP 98.1
[2019-02-04] MEDS ORDERED: cycloSPORINE 0.05% OPHTH 0.4 ML DROPERETTE BOTH EYES SCH (09:00)
[2019-02-04] MEDS ORDERED: ASPIRIN 325 MG TAB PO SCH (09:00)
--- NOTE | 2019-02-04 09:09 | P.CRDCN ---
History of Present Illness Consult date: 02/04/19 Requesting physician: Alli Celaya Reason for Consult (text): chest pain Chief complaint: chest pain, chronic shortness of breath at rest History of present illness: Supplies an 83-year-old female patient who follows with Dr. Gamez in the office she believes she is scheduled to see soon. Has a history of elevated heart rate but has been intolerant to heart rate control medications in the past due to hypotension, history of chronic shortness of breath at rest, occurring while she's sitting for which she underwent testing in our office about a year ago and was told there is no cardiac issue. Presented to the emergency department from urgent care. Apparently she had just finished eating a meal at [place] with her family and was getting in the car when she developed sharp stabbing intermittent left-sided chest pain. She did note some rapid heartbeat and shortness of breath with this but these symptoms are not new. The pain seemed to be worse with moving, better at rest and she continues to have some discomfort when she sits up in bed. EKG on admission showed sinus tachycardia with no ST-T wave abnormalities indicative of ischemia. Chest x-ray showed no active cardiopulmonary disease, no change. Laboratory values came in to be unremarkable with troponins negative 3, BUN of 14, creatinine 0.58 and NT proBNP of 51. Her vital signs have been stable. Upon examination, patient is resting comfortably in bed. Complains of discomfort in her lower chest when attempting to sit up in bed. Also complains of some left chest wall tenderness to palpation as well as pain to her left axilla area and her left arm which is chronic. Past Medical History Past Medical History: Osteoarthritis (OA) Additional Past Medical History / Comment(s): radiation tc to thyroid in past, uti, sciatica, pt stated after her hysteretomy sx she was told they had to restart her heart. History of Any Multi-Drug Resistant Organisms: None Reported Past Surgical History: Bowel Resection, Hernia Repair, Hysterectomy, Orthopedic Surgery Additional Past Surgical History / Comment(s): lt hand sx took bone from rt hip to use to make new pinky, oral sx, noncancerous lump removed lt face, sandi cataracts, lt benign lump removed from lt breast. Past Anesthesia/Blood Transfusion Reactions: No Reported Reaction Additional Past Anesthesia/Blood Transfusion Reaction / Comment(s): heart stopped & had to be restarted after hyst per pt. Past Psychological History: No Psychological Hx Reported Smoking Status: Never smoker Past Alcohol Use History: Occasional Past Drug Use History: None Reported - Past Family History Mother Family Medical History: Diabetes Mellitus Father Family Medical History: CVA/TIA, Diabetes Mellitus Brother(s) Family Medical History: Diabetes Mellitus Sister(s) Family Medical History: Diabetes Mellitus Medications and Allergies Home Medications Medication Instructions Recorded Confirmed Type Lifitegrast [Xiidra] 1 drop BOTH EYES HS 02/03/19 02/03/19 History Vit C/E/Zn/Coppr/Lutein/Zeaxan 1 cap PO QAM 02/03/19 02/03/19 History [Preservision Areds 2 Softgel] Vitalux Eye Vitamin 1 tab PO HS 02/03/19 02/03/19 History cycloSPORINE 0.05% OPHTH SOLN 1 drop BOTH EYES QAM 02/03/19 02/03/19 History [Restasis] Allergies Allergy/AdvReac Type Severity Reaction Status Date / Time amoxicillin trihydrate AdvReac Nausea & Verified 02/03/19 16:20 [From Augmentin] Vomiting & Diarrhea/DEHYDRATION potassium clavulanate AdvReac Nausea & Verified 02/03/19 16:20 [From Augmentin] Vomiting & Diarrhea/DEHYDRATION tramadol AdvReac SEVERE Verified 02/03/19 16:20 BOWEL BLOCKAGE NARCOTICS AdvReac "SEVERE Uncoded 02/03/19 16:20 bowel blockage" Physical Exam Vitals: Vital Signs Temp Pulse Pulse Resp BP BP Pulse Ox 02/04/19 07:40 98.1 F 73 109/56 94 L 02/04/19 04:00 97.4 F L 76 18 127/71 94 L 02/04/19 00:00 97.7 F 86 18 114/73 93 L 02/03/19 19:20 84 18 02/03/19 17:20 97.5 F L 84 18 144/81 97 02/03/19 17:02 99 18 141/79 100 02/03/19 14:32 82 22 131/66 99 02/03/19 14:18 97.5 F L 22 Intake and Output 02/03/19 02/04/19 02/04/19 22:59 06:59 14:59 Intake Total 240 480 Balance 240 480 Intake: Oral 240 480 Other: Voiding Method Toilet Toilet # Voids 1 Weight 70.307 kg PHYSICAL EXAMINATION: HEENT: Head is atraumatic, normocephalic. Pupils equal, round. Neck is supple. There is no elevated jugular venous pressure. HEART EXAMINATION: Heart sounds regular, S1 and S2 with a systolic murmur. CHEST EXAMINATION: Lungs are clear to auscultation. Left chest wall tenderness is noted on palpation as well as tenderness noted to left axilla. ABDOMEN: Soft, nontender. Bowel sounds are heard. No organomegaly noted. EXTREMITIES: 2+ peripheral pulses with no evidence of peripheral edema and no calf tenderness noted. NEUROLOGIC patient is awake, alert and oriented x3. . Results 02/03/19 14:33 02/03/19 14:33 Cardiac Enzymes 02/03/19 02/03/19 02/03/19 Range/Units 14:33 14:33 20:10 AST 27 (14-36) U/L Troponin I <0.012 <0.012 (0.000-0.034) ng/mL 02/04/19 Range/Units 02:29 AST (14-36) U/L Troponin I <0.012 (0.000-0.034) ng/mL Coagulation 02/03/19 Range/Units 14:33 PT 9.8 (9.0-12.0) sec APTT 24.2 (22.0-30.0) sec Lipids 02/04/19 Range/Units 02:29 Triglycerides 87 (<150) mg/dL Cholesterol 174 (<200) mg/dL HDL Cholesterol 57 (40-60) mg/dL CBC 02/03/19 Range/Units 14:33 WBC 7.5 (3.8-10.6) k/uL RBC 4.77 (3.80-5.40) m/uL Hgb 15.1 (11.4-16.0) gm/dL Hct 43.2 (34.0-46.0) % Plt Count 234 (150-450) k/uL Comprehensive Metabolic Panel 02/03/19 Range/Units 14:33 Sodium 138 (137-145) mmol/L Potassium 3.9 (3.5-5.1) mmol/L Chloride 106 (98-107) mmol/L Carbon Dioxide 22 (22-30) mmol/L BUN 14 (7-17) mg/dL Creatinine 0.58 (0.52-1.04) mg/dL Glucose 97 (74-99) mg/dL Calcium 9.6 (8.4-10.2) mg/dL AST 27 (14-36) U/L ALT 15 (4-34) U/L Alkaline Phosphatase 88 (38-126) U/L Total Protein 6.5 (6.3-8.2) g/dL Albumin 4.1 (3.5-5.0) g/dL Current Medications Generic Name Dose Route Start Last Admin Trade Name Freq PRN Reason Stop Dose Admin Acetaminophen 650 mg 02/03/19 17:12 Tylenol Tab PO Q6HR PRN Mild Pain or Fever > 100.5 Aspirin 325 mg 02/04/19 09:00 Aspirin PO DAILY MOUNIKA Cyclosporine 1 drops 02/04/19 09:00 Restasis 0.05% Ophth Soln BOTH EYES QAM MOUNIKA Naloxone HCl 0.2 mg 02/03/19 17:12 Narcan IV Q2M PRN Opioid Reversal Nitroglycerin 0.4 mg 02/03/19 15:41 Nitrostat SUBLINGUAL Q5M PRN Chest Pain Non-Formulary Medication 1 drop 02/03/19 21:00 02/03/19 23:30 Lifitegrast [Xiidra] BOTH EYES Not Given HS MOUNIKA Intake and Output 02/03/19 02/04/19 02/04/19 22:59 06:59 14:59 Intake Total 240 480 Balance 240 480 Intake: Oral 240 480 Other: Voiding Method Toilet Toilet # Voids 1 Weight 70.307 kg 02/03/19 14:33 02/03/19 14:33 Assessment and Plan Assessment: #1 symptoms of sharp stabbing intermittent left-sided chest pain, atypical for angina, troponins negative 3 and no ischemic changes noted on EKG #2 chronic shortness of breath at rest #3 chronic left arm and axilla pain #4 osteoarthritis Plan: From cardiology perspective, the pain is atypical for angina with troponins negative 3. From our standpoint the patient is stable for discharge home and follow-up in the office soon with Dr. Gamez. [employer] note has been reviewed, I agree with a documented findings and plan of care. Patient was seen and examined.
--- NOTE | 2019-02-04 11:10 | P.DS ---
Providers Date of admission: 02/03/19 15:41 Expected date of discharge: 02/04/19 Attending physician: Alli Celaya MD Consults: 02/03/19 15:41 Consult Physician Urgent Consulting Provider: Nacho Quick Consult Reason/Comments: chest pain Do you want consulting provider notified?: Yes Primary care physician: [facility] Course: 83-year-old female with no PMH presents the ED for chest pain. Patient reports getting into a motor vehicle after lunch around 1 PM when this chest pain started. Pain was intermittent but occurring very frequently. Pain is 7 out of 10 in severity. Patient described the pain as sharp in nature. Patient states that the movement of her shoulder aggravated the pain. She also expressed palpitations with this chest pain. She denied any headache, lower extremity edema, nausea or vomiting, fever or chills, changes in urination or bowel habits. She does report a cough that is dry there's been ongoing for many months now. She reports decreased exercise tolerance especially when standing. Patient states that she had an appointment with Dr. Gamez when her PCP discovered that she had a high heart rate. In the ED, vital signs are stable. CBC was negative. Coagulation panel was negative. D-dimer was negative. CMP was negative. Troponin was less than 0.012, EKG showed normal sinus rhythm. Chest x-ray was negative. Patient is admitted for chest pain, rule out acute coronary syndrome with cardiology consultation. Troponins were less than 0.0123 with EKG showing normal sinus rhythm. Acute coronary syndrome was ruled out. Cardiology evaluated the patient and cleared the patient for discharge. Patient was seen and examined. No acute events overnight. Patient reports some mild chest discomfort when she moves her left shoulder. Pain is not pleuritic. She denies any shortness of breath or palpitations. No nausea or vomiting. No fever or chills. General: [non toxic], [no distress], [appears at stated age] Derm: [warm], [dry] Head: [atraumatic], [normocephalic], [symmetric] Eyes: [EOMI], [no lid lag], [anicteric sclera] Mouth: [no lip lesion], [mucus membranes moist] Cardiovascular: [S1S2 reg], [no murmur], [positive posterior tibial pulse bilateral], [chest wall nontender to palpation] Lungs: [CTA bilateral], [no rhonchi, no rales] , [no accessory muscle use] Abdominal: [soft], [ nontender to palpation], [no guarding], [no appreciable organomegaly] Ext: [no gross muscle atrophy], [no edema], [no contractures], [left shoulder restricted range of motion due to pain] Neuro: [no focal neuro deficits] Psych: [Alert], [oriented], [appropriate affect] Chest pain likely musculoskeletal Dyslipidemia D-dimer negative. Low concerns for PE. Chest x-ray negative. Troponin less than 0.012 3 with EKG showing normal sinus rhythm. ACS ruled out. Plans: Telemetry monitoring. Aspirin daily. Follow cardiology consultation. LDL 100. Plans: Low fat diet. [Chest pain atypical. ACS ruled out. Follow-up PCP within 3 days. Follow-up cardiology within 1 week.] Pertinent Studies: Chest x-ray Patient Condition at Discharge: Stable Plan - Discharge Summary Discharge Rx Participant: No New Discharge Prescriptions: Continue cycloSPORINE 0.05% OPHTH SOLN [Restasis] 1 drop BOTH EYES QAM Vit C/E/Zn/Coppr/Lutein/Zeaxan [Preservision Areds 2 Softgel] 1 cap PO QAM Lifitegrast [Xiidra] 1 drop BOTH EYES HS Vitalux Eye Vitamin 1 tab PO HS Discharge Medication List Lifitegrast [Xiidra] 1 drop BOTH EYES HS 02/03/19 [History] Vit C/E/Zn/Coppr/Lutein/Zeaxan [Preservision Areds 2 Softgel] 1 cap PO QAM 02/03/19 [History] Vitalux Eye Vitamin 1 tab PO HS 02/03/19 [History] cycloSPORINE 0.05% OPHTH SOLN [Restasis] 1 drop BOTH EYES QAM 02/03/19 [History] Follow up Appointment(s)/Referral(s): Johnathan Wynn MD [Primary Care Provider] - 1-2 days Ravinder Gamez MD [STAFF PHYSICIAN] - 1 Week Activity/Diet/Wound Care/Special Instructions: Diet: Low-fat Follow-up PCP within 3 days of discharge. Follow-up cardiology within 1 week of discharge. Take all medications as advised. Come back to the ED or call 911 for worsening chest pain, shortness of breath, palpitations, dizziness. Discharge Disposition: HOME SELF-CARE
== END 2019-02-04 12:49 | disposition home or self-care (01) ==
LOC: EC 14:14 → 1SOBS 15:41
PROVIDERS: ADMIT Family Medicine; ATTEND Family Medicine
DX: R07.89 Other chest pain (principal); M25.512 Pain in left shoulder; E78.5 Hyperlipidemia, unspecified; R00.2 Palpitations; R00.0 Tachycardia, unspecified; R05 Cough; R06.02 Shortness of breath; G89.29 Other chronic pain; M79.622 Pain in left upper arm; M19.90 Unspecified osteoarthritis, unspecified site; Z79.899 Other long term (current) drug therapy; Z88.0 Allergy status to penicillin; Z88.5 Allergy status to narcotic agent; Z92.3 Personal history of irradiation; Z87.440 Personal history of urinary (tract) infections; Z87.39 Personal history of other diseases of the musculoskeletal system and connective tissue; Z90.710 Acquired absence of both cervix and uterus; Z86.79 Personal history of other diseases of the circulatory system; Z87.19 Personal history of other diseases of the digestive system; Z98.890 Other specified postprocedural states; Z87.2 Personal history of diseases of the skin and subcutaneous tissue; Z98.42 Cataract extraction status, left eye; Z98.41 Cataract extraction status, right eye; Z82.3 Family history of stroke; Z83.3 Family history of diabetes mellitus
CPT/HCPCS: 93005 ×2; 99285; 36415; 85379; 83880; 80061; 80053; 83735; 84484 ×2; 85025; 85610; 85730; 71046; G0378 ×2

== ENCOUNTER → 2019-02-24 | Outpatient (CLI) | payer MEDICARE, BC | END | disposition home or self-care (01) | LOC: CPPFTMAIN 13:32 | PROVIDERS: ATTEND Internal Medicine | DX: R06.09 Other forms of dyspnea (principal) | CPT/HCPCS: 94060; 94726; 94729 ==

== ENCOUNTER → 2022-02-27 | Outpatient (CLI) | payer MEDICARE, BC ==
--- NOTE | 2022-02-27 16:00 | BD ---
EXAMINATION TYPE: Axial Bone Density DATE OF EXAM: 02/27/2022 COMPARISON: NONE CLINICAL HISTORY: 86 years year old Female. ICD-10 CODE: N951 MENOPAUSAL Height: 5'1 Weight: 158 FRAX RISK QUESTIONS: History of Fracture in Adulthood:y Secondary Osteoporosis: 3. Menopause before 45: y RISK FACTORS HISTORY OF: Postmenopausal woman: y Frequent falls: balance off MEDICATIONS: Additional Medications: dry eyes ,pain Additional History: EXAM MEASUREMENTS: Bone mineral densitometry was performed using the [employer] System. Bone mineral density as measured about the Lumbar spine is: ----- L1-L4(G/cm2): 1.427 T Score Values are as follows: ----- L1: 2.1 ----- L2: 1.6 ----- L3: 1.7 ----- L4: 2.7 ----- L1-L4: 2.1 Bone mineral density about the R hip (g/cm2): 0.708 Bone mineral density about the L hip (g/cm2): 0.666 T Score values are as follows: -----R Neck: -2.4 -----L Neck: -2.7 -----R Total: -1.7 -----L Total: -1.8 FRAX%s: The graph provided illustrates a 17.4% chance for a major osteoporotic fx and a 6.6% chance f or the hips probability for fx in 10 years time. IMPRESSION: Osteoporosis (T Score less than -2.5). There is increased fracture risk and therapy is usually indicated based on age. Re-Screen 1-2 years. NOTE: T-SCORE=SD OF THE YOUNG ADULT MEAN.
--- NOTE | 2022-02-28 21:58 | MM ---
Reason for Exam: Screening (asymptomatic). Patient History: Menarche at age 13. First Full-Term at age 25. Left ovary removed at age 39. Hysterectomy at age 39. Postmenopausal. MG pre op needle loc LT - 2 on the Left side. Tissue Density: The breast tissue is heterogeneously dense. This may lower the sensitivity of mammography. Findings: Analyzed By CAD. 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 Scar marker overlies the periareolar left breast. No significant mass, suspicious microcalcification, or other discrete abnormality is seen. Overall Assessment: Benign, BI-RAD 2 Management: Screening Mammogram of both breasts in 1 year. 1. Patient should continue monthly self breast exams. 2. A clinical breast exam by your physician is recommended on an annual basis. 3. This exam should not preclude additional follow-up of suspicious palpable abnormalities. Electronically signed and approved by: Archie Askew M.D. Radiologist
== END | disposition home or self-care (01) ==
LOC: RADMAMWWP 14:55
PROVIDERS: ATTEND Family Medicine
DX: Z12.31 Encounter for screening mammogram for malignant neoplasm of breast (principal); M81.0 Age-related osteoporosis without current pathological fracture; Z78.0 Asymptomatic menopausal state
CPT/HCPCS: 77063; 77067; 77080

== ENCOUNTER 2023-04-21 03:24 | Observation (INO) | payer MEDICARE, BC ==
[2023-04-21] MEDS: SODIUM CHLORIDE 0.9% 500 ML 500 ML IV ONE (04:00)
--- NOTE | 2023-04-21 04:01 | ED ---
General Adult HPI - General Chief complaint: Nausea/Vomiting/Diarrhea Stated complaint: Nausea, Vomiting Time Seen by Provider: 04/21/23 03:32 Source: patient, RN notes reviewed, old records reviewed Mode of arrival: EMS Limitations: no limitations - History of Present Illness Initial comments: 88-year-old female presents from assisted living facility with acute vomiting and diarrhea. Patient is accompanied by her daughter. Patient states that at approximately 1130 she had onset of nausea vomiting there was some associated dizziness with this. No chest or abdominal pain. She had developed subsequent diarrhea. She denies fever or chills. She denies any known sick contacts. She denies questionable food. - Related Data Home Medications Medication Instructions Recorded Confirmed Lifitegrast [Xiidra] 1 drop BOTH EYES HS 02/03/19 02/03/19 Vit C/E/Zn/Coppr/Lutein/Zeaxan 1 cap PO QAM 02/03/19 02/03/19 [Preservision Areds 2 Softgel] Vitalux Eye Vitamin 1 tab PO HS 02/03/19 02/03/19 cycloSPORINE 0.05% OPHTH SOLN 1 drop BOTH EYES QAM 02/03/19 02/03/19 [Restasis] Allergies Allergy/AdvReac Type Severity Reaction Status Date / Time amoxicillin trihydrate AdvReac Nausea & Verified 02/03/19 16:20 [From Augmentin] Vomiting & Diarrhea/DEHYDRATION potassium clavulanate AdvReac Nausea & Verified 02/03/19 16:20 [From Augmentin] Vomiting & Diarrhea/DEHYDRATION tramadol AdvReac SEVERE Verified 02/03/19 16:20 BOWEL BLOCKAGE NARCOTICS AdvReac "SEVERE Uncoded 02/03/19 16:20 bowel blockage" Review of Systems ROS Statement: Those systems with pertinent positive or pertinent negative responses have been documented in the HPI. ROS Other: All systems not noted in ROS Statement are negative. Past Medical History Past Medical History: Osteoarthritis (OA) Additional Past Medical History / Comment(s): radiation tc to thyroid in past, uti, sciatica, pt stated after her hysteretomy sx she was told they had to restart her heart. History of Any Multi-Drug Resistant Organisms: None Reported Past Surgical History: Bowel Resection, Hernia Repair, Hysterectomy, Orthopedic Surgery Additional Past Surgical History / Comment(s): lt hand sx took bone from rt hip to use to make new pinky, oral sx, noncancerous lump removed lt face, sandi cataracts, lt benign lump removed from lt breast. Past Anesthesia/Blood Transfusion Reactions: No Reported Reaction Additional Past Anesthesia/Blood Transfusion Reaction / Comment(s): heart stopped & had to be restarted after hyst per pt. Past Psychological History: No Psychological Hx Reported Past Alcohol Use History: Occasional Past Drug Use History: None Reported - Past Family History Mother Family Medical History: Diabetes Mellitus Father Family Medical History: CVA/TIA, Diabetes Mellitus Brother(s) Family Medical History: Diabetes Mellitus Sister(s) Family Medical History: Diabetes Mellitus General Exam Limitations: no limitations General appearance: alert, in no apparent distress Head exam: Present: atraumatic, normocephalic Eye exam: Present: normal appearance, PERRL ENT exam: Present: mucous membranes dry Neck exam: Present: normal inspection, tenderness Respiratory exam: Present: normal lung sounds bilaterally. Absent: respiratory distress, wheezes Cardiovascular Exam: Present: regular rate, normal rhythm GI/Abdominal exam: Present: soft. Absent: distended, tenderness Extremities exam: Present: normal capillary refill. Absent: pedal edema Neurological exam: Present: alert, oriented X3, CN II-XII intact. Absent: motor sensory deficit Psychiatric exam: Present: normal affect, normal mood Skin exam: Present: warm, dry, intact. Absent: cyanosis, diaphoretic Course Vital Signs 04/21/23 04/21/23 04/21/23 03:29 04:27 05:40 Temperature 97.6 F Pulse Rate 84 82 80 Respiratory 16 22 13 Rate Blood Pressure 145/74 146/73 138/68 O2 Sat by Pulse 100 99 99 Oximetry 04/21/23 06:45 Temperature Pulse Rate 82 Respiratory 16 Rate Blood Pressure 136/64 O2 Sat by Pulse 99 Oximetry Medical Decision Making - Medical Decision Making Was pt. sent in by a medical professional or institution (, PA, DBA, urgent care, hospital, or prison...) When possible be specific @ -No Did you speak to anyone other than the patient for history (EMS, parent, family, police, friend...)? What history was obtained from this source @ -Patient's daughter Did you review nursing and triage notes (agree or disagree)? Why? @ -I reviewed and agree with nursing and triage notes Were old charts reviewed (outside hosp., previous admission, EMS record, old EKG, old radiological studies, urgent care reports/EKG's, prison records)? Report findings @ -No old charts were reviewed Differential Diagnosis (chest pain, altered mental status, abdominal pain women, abdominal pain men, vaginal bleeding, weakness, fever, dyspnea, syncope, headache, dizziness, GI bleed, back pain, seizure, CVA, palpatations, mental health, musculoskeletal)? @ -Bowel obstruction, enteritis, colitis, vertigo EKG interpreted by me (3pts min.). @ -As above X-rays interpreted by me (1pt min.). @ -None done CT interpreted by me (1pt min.). @ -None done U/S interpreted by me (1pt. min.). @ -None done What testing was considered but not performed or refused? (CT, X-rays, U/S, labs)? Why? @ -None What meds were considered but not given or refused? Why? @ -None Did you discuss the management of the patient with other professionals (professionals i.e. , PA, DBA, lab, RT, psych nurse, foster care social worker, events specialist, teacher, sports development officer, immigration case worker)? Give summary @ -No Was smoking cessation discussed for >3mins.? @ -No Was critical care preformed (if so, how long)? @ -No Were there social determinants of health that impacted care today? How? (Homelessness, low income, unemployed, alcoholism, drug addiction, transportation, low edu. Level, literacy, decrease access to med. care, prison, rehab)? @ -No Was there de-escalation of care discussed even if they declined (Discuss DNR or withdrawal of care, Hospice)? DNR status @ -No What co-morbidities impacted this encounter? (DM, HTN, Smoking, COPD, CAD, Cancer, CVA, ARF, Chemo, Hep., AIDS, mental health diagnosis, sleep apnea, morbid obesity)? @ -None Was patient admitted / discharged? Hospital course, mention meds given and route, prescriptions, significant lab abnormalities, going to OR and other pertinent info. @ -Pt discharged. feelin much better. no further vomiting. tolerating po. Patient continues to feel very dizzy, unsteady, she has no focal numbness or weakness. No ataxia. No nystagmus. Vital signs are stable but given the persistent symptoms she will be observed for hydration and symptom control. Undiagnosed new problem with uncertain prognosis? @ -No Drug Therapy requiring intensive monitoring for toxicity (Heparin, Nitro, Insulin, Cardizem)? @ -No Were any procedures done? @ -No Diagnosis/symptom? @ -Nausea vomiting diarrhea, lightheaded Acute, or Chronic, or Acute on Chronic? @ -[acute Uncomplicated (without systemic symptoms) or Complicated (systemic symptoms)? @ -Default Side effects of treatment? @ -No Exacerbation, Progression, or Severe Exacerbation? @ -No Poses a threat to life or bodily function? How? (Chest pain, USA, CA, pneumonia, PE, COPD, DKA, ARF, appy, cholecystitis, CVA, Diverticulitis, Homicidal, Suicidal, threat to staff... and all critical care pts) @ -[low risk - Lab Data Result diagrams: 04/21/23 03:58 04/21/23 03:58 Lab Results 04/21/23 04/21/23 04/21/23 Range/Units 03:58 03:58 03:58 WBC 8.7 (3.8-10.6) k/uL RBC 4.76 (3.80-5.40) m/uL Hgb 14.3 (11.4-16.0) gm/dL Hct 43.2 (34.0-46.0) % MCV 90.8 (80.0-100.0) fL MCH 30.1 (25.0-35.0) pg MCHC 33.1 (31.0-37.0) g/dL RDW 13.2 (11.5-15.5) % Plt Count 184 (150-450) k/uL MPV 8.1 Neutrophils % 72 % Lymphocytes % 21 % Monocytes % 4 % Eosinophils % 1 % Basophils % 0 % Neutrophils # 6.3 (1.3-7.7) k/uL Lymphocytes # 1.8 (1.0-4.8) k/uL Monocytes # 0.4 (0-1.0) k/uL Eosinophils # 0.1 (0-0.7) k/uL Basophils # 0.0 (0-0.2) k/uL Sodium 136 L (137-145) mmol/L Potassium 3.5 (3.5-5.1) mmol/L Chloride 106 (98-107) mmol/L Carbon Dioxide 18 L (22-30) mmol/L Anion Gap 12 mmol/L BUN 18 H (7-17) mg/dL Creatinine 0.56 (0.52-1.04) mg/dL Est GFR (CKD-EPI)AfAm >90 (>60 ml/min/1.73 sqM) Est GFR (CKD-EPI)NonAf 83 (>60 ml/min/1.73 sqM) Glucose 133 H (74-99) mg/dL Plasma Lactic Acid Axel 1.5 (0.7-2.0) mmol/L Calcium 9.0 (8.4-10.2) mg/dL Magnesium 2.1 (1.6-2.3) mg/dL Total Bilirubin 0.7 (0.2-1.3) mg/dL AST 29 (14-36) U/L ALT 18 (4-34) U/L Alkaline Phosphatase 93 (38-126) U/L Total Protein 6.4 (6.3-8.2) g/dL Albumin 4.0 (3.5-5.0) g/dL Influenza Type A (PCR) (Not Detectd) Influenza Type B (PCR) (Not Detectd) RSV (PCR) (Not Detectd) SARS-CoV-2 (PCR) (Not Detectd) 04/21/23 Range/Units 03:58 WBC (3.8-10.6) k/uL RBC (3.80-5.40) m/uL Hgb (11.4-16.0) gm/dL Hct (34.0-46.0) % MCV (80.0-100.0) fL MCH (25.0-35.0) pg MCHC (31.0-37.0) g/dL RDW (11.5-15.5) % Plt Count (150-450) k/uL MPV Neutrophils % % Lymphocytes % % Monocytes % % Eosinophils % % Basophils % % Neutrophils # (1.3-7.7) k/uL Lymphocytes # (1.0-4.8) k/uL Monocytes # (0-1.0) k/uL Eosinophils # (0-0.7) k/uL Basophils # (0-0.2) k/uL Sodium (137-145) mmol/L Potassium (3.5-5.1) mmol/L Chloride (98-107) mmol/L Carbon Dioxide (22-30) mmol/L Anion Gap mmol/L BUN (7-17) mg/dL Creatinine (0.52-1.04) mg/dL Est GFR (CKD-EPI)AfAm (>60 ml/min/1.73 sqM) Est GFR (CKD-EPI)NonAf (>60 ml/min/1.73 sqM) Glucose (74-99) mg/dL Plasma Lactic Acid Axel (0.7-2.0) mmol/L Calcium (8.4-10.2) mg/dL Magnesium (1.6-2.3) mg/dL Total Bilirubin (0.2-1.3) mg/dL AST (14-36) U/L ALT (4-34) U/L Alkaline Phosphatase (38-126) U/L Total Protein (6.3-8.2) g/dL Albumin (3.5-5.0) g/dL Influenza Type A (PCR) Not Detected (Not Detectd) Influenza Type B (PCR) Not Detected (Not Detectd) RSV (PCR) Not Detected (Not Detectd) SARS-CoV-2 (PCR) Not Detected (Not Detectd) Disposition Clinical Impression: Nausea vomiting and diarrhea, Weakness, Lightheaded Disposition: ADMITTED IP TO THIS HOSP Condition: Fair Instructions (If sedation given, give patient instructions): Acute Nausea and Vomiting (ED), Acute Diarrhea (ED) Is patient prescribed a controlled substance at d/c from ED?: No Referrals: None,Stated [Primary Care Provider] - 1-2 days Time of Disposition: 06:57
[2023-04-21 04:18] LABS: Basophils % (A) 0 %; Eosinophils # (A) 0.1 k/uL (0-0.7); Eosinophils % (A) 1 %; HCT 43.2 % (34.0-46.0); HGB 14.3 gm/dL (11.4-16.0); Lymphocytes # (A) 1.8 k/uL (1.0-4.8); Lymphocytes % (A) 21 %; MCH 30.1 pg (25.0-35.0); MCHC 33.1 g/dL (31.0-37.0); MCV 90.8 fL (80.0-100.0); Mean Platelet Volume 8.1; Monocytes # (A) 0.4 k/uL (0-1.0); Monocytes % (A) 4 %; Neutrophils # (A) 6.3 k/uL (1.3-7.7); Neutrophils % (A) 72 %; Platelet Count 184 k/uL (150-450); RBC 4.76 m/uL (3.80-5.40); RDW 13.2 % (11.5-15.5); WBC 8.7 k/uL (3.8-10.6)
[2023-04-21 04:52] LABS: ALT 18 U/L (4-34); AST 29 U/L (14-36); African American GFR (CKD) >90 (>60 ml/min/1.73 sqM); Alkaline Phosphatase 93 U/L (38-126); Anion Gap 12 mmol/L; Blood Urea Nitrogen 18 mg/dL (7-17); Carbon Dioxide 18 mmol/L (22-30); Chloride 106 mmol/L (98-107); Glucose 133 mg/dL (74-99); Magnesium 2.1 mg/dL (1.6-2.3); Non-African American GFR(CKD) 83 (>60 ml/min/1.73 sqM); Potassium 3.5 mmol/L (3.5-5.1); Sodium 136 mmol/L (137-145); Total Bilirubin 0.7 mg/dL (0.2-1.3); Total Protein 6.4 g/dL (6.3-8.2)
[2023-04-21] MEDS: MECLIZINE 12.5 MG TAB PO STA (05:37)
[2023-04-21] MEDS ORDERED: MECLIZINE 12.5 MG TAB PO PRN (06:56)
[2023-04-21] MEDS ORDERED: NALOXONE 0.4 MG/ML 1 ML VIAL IV PRN (07:09)
[2023-04-21] MEDS: SODIUM CHLORIDE 0.9% 1,000 ML IV SCH (07:28)
[2023-04-21 09:03] LABS: Appearance,Urine Clear (Clear); Bilirubin,Urine Negative (Negative); Blood,Urine Negative (Negative); Color,Urine Colorless; Glucose,Urine (UA) Negative (Negative); Ketones,Urine Trace (Negative); Leukocyte Esterase,Urine Small (Negative); Mucus,Urine Rare /hpf; Nitrite,Urine Negative (Negative); Protein,Urine Negative (Negative); RBC,Urine 2 /hpf (0-5); Specific Gravity,Urine 1.008 (1.001-1.035); Squamous Epithelial Cell,Urine <1 /hpf (0-4); Urobilinogen,Urine <2.0 mg/dL (<2.0); WBC,Urine 3 /hpf (0-5)
[2023-04-21] MEDS ORDERED: ALPRAZolam 0.25 MG TAB PO PRN (13:26)
[2023-04-21] MEDS ORDERED: ONDANSETRON 4 MG/2 ML VIAL IVP PRN (13:27)
[2023-04-21] MEDS: ASPIRIN 325 MG TAB PO PRN (14:23)
--- NOTE | 2023-04-21 14:28 | XR ---
EXAMINATION TYPE: XR abdomen 1V DATE OF EXAM: 04/21/2023 Comparison: 04/14/2015 Clinical History: 88 year-old female nausea, vomiting, diarrhea, abd pain Findings: Scattered gassy colon and small bowel as well as air in the stomach. No dilated small bowel loops. Sc attered mild stool. No suspicious calcification seen. Impression: Nonobstructive bowel gas pattern. Mild scattered stool. Scattered gassy bowel.
--- NOTE | 2023-04-21 16:18 | P.HPIM ---
History of Present Illness H&P Date: 04/21/23 Chief Complaint: Nausea, vomiting, dizziness 88-year-old woman with medical history of hypertension, osteoarthritis presenting for evaluation of dizziness, nausea, vomiting. Patient says that she was putting on her pajamas when she had an episode of dizziness which prompted her to lie in her bed which she said improved her dizziness. However, she slowly developed nausea and had to run to the bathroom for she had an episode of emesis. The story is little bit unclear because she also told me at that time that she was unable to get up from after she lied in her bed and therefore had to call for help, but then proceeded to tell me that she was able to get up and go to the bathroom on her own. In either case, the symptoms were associate with nausea, vomiting, 1 episode of diarrhea and have now resolved at the time of me taking this history. Subsequently, in the middle of the nurse taking her history earlier, patient started to complain of acute bladder pain with some radiation of pain to her back. At the time my evaluation, the symptoms had improved and patient tells me that she suspected that "this pain is related to her having to hold her bladder for as long as she did before being moved upstairs". At any rate, though bladder/back pain seems to be slowly improving without any intervention. Patient's review of systems was negative for chest pain, palpitations, flushing, syncope, diaphoresis. Today, patient was afebrile, 164/90, heart rate 79, 97% on room air. CBC is unremarkable. Basic metabolic panel was significant for CO2 of 18 without a gap. Liver function tests are unremarkable. Urinalysis showed trace ketones, small leukocyte esterase, 2 red blood cells, 3 white blood cells. Influenza A, B, RSV, COVID were negative. I went ahead and ordered an abdominal x-ray which showed a nonobstructive bowel gas pattern, mild scattered stool. All Systems reviewed and pertinent positives and negatives noted in HPI, all other symptoms are negative Gen: in no apparent distress, resting comfortably in bed Eyes: PERRL, no scleral injection or icterus HENT: normocephalic, atraumatic, good hearing acuity, moist mucous membranes Neck: no tracheal deviation, full range of motion Resp: good air exchange, breathing comfortably with no accessory muscle use, no tactile fremitus CVS: good distal perfusion x 4, no pitting edema GI: soft, NTTP, ND, no hepatosplenomegaly : no suprapubic tenderness, no CVAT, rebollar catheter not present MSK: no clubbing, no cyanosis, no noted contractures of extremities Skin: no noted rashes, petechiae; temperature of skin is appropriate Neuro: moving all extremities without signs of weakness, CN II-XII intact Psych: cooperative, euthymic mood, insight and judgment intact Labs and imaging as above Assessment/plan: Dizziness -Start patient on IV fluids -Orthostatics twice daily -PT consult Abdominal pain, nausea, vomiting -Zofran as needed -Discontinue Xanax that patient takes at home -Resume gabapentin -Aspirin 325 twice daily as needed for pain -Tylenol as needed for pain Hypertension -Resume home meds Patient is DNR/DNI Past Medical History Past Medical History: Osteoarthritis (OA) Additional Past Medical History / Comment(s): radiation tc to thyroid in past, uti, sciatica, pt stated after her hysteretomy sx she was told they had to restart her heart. macular degeneration. History of Any Multi-Drug Resistant Organisms: None Reported Past Surgical History: Bowel Resection, Hysterectomy, Orthopedic Surgery Additional Past Surgical History / Comment(s): lt hand sx took bone from rt hip to use to make new pinky, oral sx, noncancerous lump removed lt face, sandi cataracts, lt benign lump removed from lt breast. bilat knee rplacements. Past Anesthesia/Blood Transfusion Reactions: No Reported Reaction Additional Past Anesthesia/Blood Transfusion Reaction / Comment(s): heart stopped & had to be restarted after hyst per pt. Past Psychological History: No Psychological Hx Reported Smoking Status: Never smoker Past Alcohol Use History: None Reported, Occasional Past Drug Use History: None Reported - Past Family History Mother Family Medical History: Diabetes Mellitus Father Family Medical History: CVA/TIA, Diabetes Mellitus Brother(s) Family Medical History: Diabetes Mellitus Sister(s) Family Medical History: Diabetes Mellitus Medications and Allergies Home Medications Medication Instructions Recorded Confirmed Type ALPRAZolam [Xanax] 0.125 - 0.25 mg PO BID PRN 04/21/23 04/21/23 History Furosemide [Lasix] 20 mg PO DAILY@0900,1500 04/21/23 04/21/23 History Gabapentin [Neurontin] 300 mg PO QID 04/21/23 04/21/23 History Potassium Chloride ER [K-Dur 10] 10 meq PO DAILY 04/21/23 04/21/23 History Allergies Allergy/AdvReac Type Severity Reaction Status Date / Time amoxicillin trihydrate AdvReac Nausea & Verified 04/21/23 11:11 [From Augmentin] Vomiting & Diarrhea/DEHYDRATION potassium clavulanate AdvReac Nausea & Verified 04/21/23 11:11 [From Augmentin] Vomiting & Diarrhea/DEHYDRATION tramadol AdvReac SEVERE Verified 04/21/23 11:11 BOWEL BLOCKAGE NARCOTICS AdvReac "SEVERE Uncoded 04/21/23 11:11 bowel blockage" Physical Exam Osteopathic Statement: *. No significant issues noted on an osteopathic structural exam other than those noted in the History and Physical/Consult. Vitals: Vital Signs Temp Pulse Pulse Resp BP BP Pulse Ox 04/21/23 14:00 95 16 04/21/23 13:10 97.8 F 95 16 162/78 98 04/21/23 09:42 97.4 F L 79 17 164/90 97 04/21/23 08:50 82 18 132/74 97 04/21/23 08:00 79 17 04/21/23 07:29 81 18 137/70 97 04/21/23 06:45 82 16 136/64 99 04/21/23 05:40 80 13 138/68 99 04/21/23 04:27 82 22 146/73 99 04/21/23 03:29 97.6 F 84 16 145/74 100 Intake and Output 04/21/23 04/21/23 04/21/23 06:59 14:59 22:59 Intake Total 236 Output Total 350 Balance -114 Intake: Oral 236 Output: Urine 350 Other: Voiding Method External Catheter # Voids 2 Weight 63.957 kg Results CBC & Chem 7: 04/21/23 03:58 04/21/23 03:58 Labs: Abnormal Lab Results - Last 24 Hours (Table) 04/21/23 04/21/23 Range/Units 03:58 08:31 Sodium 136 L (137-145) mmol/L Carbon Dioxide 18 L (22-30) mmol/L BUN 18 H (7-17) mg/dL Glucose 133 H (74-99) mg/dL Urine Ketones Trace H (Negative) Ur Leukocyte Esterase Small H (Negative) Urine Mucus Rare H (None) /hpf Thrombosis Risk Factor Assmnt - Choose All That Apply Any of the Below Risk Factors Present?: Yes Each Factor Represents 1 point: Obesity (BMI >25) Other Risk Factors: Yes Each Risk Factor Represents 3 Points: Age 75 years or older Thrombosis Risk Factor Assessment Total Risk Factor Score: 4 Thrombosis Risk Factor Assessment Level: Moderate Risk
[2023-04-21] MEDS: GABAPENTIN 300 MG CAP PO SCH (17:05)
[2023-04-21] MEDS: ACETAMINOPHEN TAB 325 MG TAB PO PRN (20:31)
[2023-04-22] MEDS: POTASSIUM CHLORIDE ER 10 MEQ TAB.ER.PRT PO SCH (08:53)
--- NOTE | 2023-04-22 14:19 | P.PN ---
Subjective Progress Note Date: 04/22/23 No new complaints. PT recommending rehab. Gen: in no apparent distress, resting comfortably in bed Eyes: PERRL, no scleral injection or icterus HENT: normocephalic, atraumatic, good hearing acuity, moist mucous membranes Neck: no tracheal deviation, full range of motion Resp: good air exchange, breathing comfortably with no accessory muscle use, no tactile fremitus CVS: good distal perfusion x 4, no pitting edema GI: soft, NTTP, ND, no hepatosplenomegaly : no suprapubic tenderness, no CVAT, rebollar catheter not present MSK: no clubbing, no cyanosis, no noted contractures of extremities Skin: no noted rashes, petechiae; temperature of skin is appropriate Neuro: moving all extremities without signs of weakness, CN II-XII intact Psych: cooperative, euthymic mood, insight and judgment intact Hospital Course: 88-year-old woman with medical history of hypertension, osteoarthritis presenting for evaluation of dizziness, nausea, vomiting. Patient was afebrile, 164/90, heart rate 79, 97% on room air. CBC is unremarkable. Basic metabolic panel was significant for CO2 of 18 without a gap. Liver function tests are unremarkable. Urinalysis showed trace ketones, small leukocyte esterase, 2 red blood cells, 3 white blood cells. Influenza A, B, RSV, COVID were negative. I went ahead and ordered an abdominal x-ray which showed a nonobstructive bowel gas pattern, mild scattered stool. Assessment/plan: Dizziness -Start patient on IV fluids -Orthostatics twice daily -PT consult recommending rehab Abdominal pain, nausea, vomiting -Zofran as needed -Discontinue Xanax that patient takes at home -Resume gabapentin -Aspirin 325 twice daily as needed for pain -Tylenol as needed for pain Hypertension -Resume home meds Patient is DNR/DNI Objective - Vital Signs Vital signs: Vital Signs Temp 97.5 F L 04/22/23 07:00 Pulse 86 04/22/23 07:00 Resp 16 04/22/23 07:00 BP 160/87 04/22/23 07:00 Pulse Ox 96 04/22/23 07:00 FiO2 Intake & Output 04/21/23 04/22/23 04/22/23 18:59 06:59 18:59 Intake Total 236 118 Output Total 350 1050 Balance -114 -1050 118 Weight 63.957 kg Intake: Oral 236 118 Output: Urine 350 1050 Other: Voiding Method External Catheter External Catheter # Voids 2 1 - Labs CBC & Chem 7: 04/21/23 03:58 04/21/23 03:58
[2023-04-22] MEDS: polyethylene glycoL 3350 17 GM POWD.PACK PO SCH (17:02)
[2023-04-23] MEDS: SODIUM CHLORIDE 0.9% 500 ML 500 ML IV ONE (12:40)
[2023-04-23] MEDS: bisacodyL 10 MG SUPP RECTAL STA (12:40)
--- NOTE | 2023-04-23 14:42 | CT ---
EXAMINATION TYPE: CT brain wo con DATE OF EXAM: 04/23/2023 COMPARISON: 04/23/2023. HISTORY: Lightheadedness and dizziness. CT DLP: 1173.80 mGycm Automated exposure control for dose reduction was used. FINDINGS: There is no acute intracranial hemorrhage, mass, mass effect, midline shift, extra-axial fluid collec tion or hydrocephalus. There is hypoattenuation in the periventricular, subcortical and deep white matter which likely relat es to chronic ischemic small vessel change. No acute major vessel infarct is otherwise seen. Age-rela lalo atrophy is noted. The visualized paranasal sinuses and mastoid air cells are clear. IMPRESSION: CHRONIC CHANGES WITH NO ACUTE INTRACRANIAL PROCESS OTHERWISE SEEN.
[2023-04-23 15:21] VITALS: BP 134/86; PULSE 88; RESP 18; TEMP 97.6
--- NOTE | 2023-04-23 15:31 | P.DS ---
Providers Date of admission: 04/21/23 07:09 Expected date of discharge: 04/23/23 Attending physician: Joann Sofia MD Primary care physician: Stated None Hospital Course: Discharge Diagnosis: Constipation with associated nausea and vomiting Dizziness likely secondary to tachycardia, may also bleed secondary to polypharmacy Anxiety Hypertension Hospital Course: Patient is an 88-year-old woman with a history of hypertension, osteoarthritis, and hypothyroidism who presented to the emergency department with complaints of nausea, vomiting, and dizziness. In the emergency department she underwent extensive evaluation. Her laboratory analysis was remarkable for metabolic acidosis, hyponatremia, and elevated BUN. Influenza A/B/RSV/COVID-19 testing was negative. Urinalysis was negative. After admission she was complaining of abdominal pain and underwent an abdominal x-ray which confirmed a moderate stool burden. She was given oral laxatives without improvement. She had significant dizziness and was seen by physical and Occupational Therapy. Her dizziness improved throughout her hospital stay and she was able to ambulate 250 feet on the day of discharge. She required a suppository to have a bowel movement. She underwent a head CT to evaluate her dizziness which showed no signs of prior stroke. Orthostatic vital signs were negative for drop in blood pressure but did show mild elevation in pulse with standing, however after discussion with nurse this is likely secondary to anxiety as the patient was very scared of falling. As she had improved with physical therapy she was determined stable for discharge home with home health. Follow-up: Dr. Evangelista in 1 to 2 days. Stay off of Xanax. Patient can resume her Neurontin. She should continue with the significant bowel regiment. Patient seen and examined at bedside. Dizziness is feeling better and she is overall feeling better but was still concerned about having a bowel movement. (Patient was seen prior to her suppository) Vital signs reviewed and stable. General: Nontoxic, no distress, appears younger than stated age Cardiovascular: S1S2 reg, no murmur, positive posterior tibial pulse bilateral, Lungs: CTA bilateral, no rhonchi, no rales, no accessory muscle use Abdominal: Soft,, mild distention nontender to palpation, no guarding, no appreciable organomegaly Ext: No gross muscle atrophy, no edema b/l lower extremities, no contractures Neuro: CN II-XI grossly intact, no focal neuro deficits Psych: Alert, oriented, appropriate affect A total of 42 minutes of time were spent preparing this complex discharge summary. Patient was discharged on 04/23/2023. This dictation was prepared using [employer] voice recognition software. Though every attempt is made to correct errors during dictation some may still exist. Patient Condition at Discharge: Fair Plan - Discharge Summary Discharge Rx Participant: No New Discharge Prescriptions: Continue Furosemide [Lasix] 20 mg PO DAILY@0900,1500 Potassium Chloride ER [K-Dur 10] 10 meq PO DAILY Gabapentin [Neurontin] 300 mg PO QID Discontinued ALPRAZolam [Xanax] 0.125 - 0.25 mg PO BID PRN PRN Reason: Anxiety Discharge Medication List Furosemide [Lasix] 20 mg PO DAILY@0900,1500 04/21/23 [History] Gabapentin [Neurontin] 300 mg PO QID 04/21/23 [History] Potassium Chloride ER [K-Dur 10] 10 meq PO DAILY 04/21/23 [History] Follow up Appointment(s)/Referral(s): Shavon Evangelista MD [STAFF PHYSICIAN] - 1-2 Days [facility] [facility] [NON-STAFF] - [facility], [NON-STAFF] - Patient Instructions/Handouts: Acute Nausea and Vomiting (ED), Acute Diarrhea (ED) Activity/Diet/Wound Care/Special Instructions: Activity: as tolerated Diet: regular Special Instructions: Please keep up with a bowel regiment. You should use MiraLAX daily and then Dulcolax as needed [id number]. Increase you diet of fresh fruits and vegetables. Discharge/Stand Alone Forms: Who Do I Call?, Personal Javascript Developer Discharge Disposition: HOME WITH HOME HEALTH SERVICES
== END 2023-04-23 16:53 | disposition home health service (06) ==
LOC: EC 03:24 → 6NMEDSUR 07:09
PROVIDERS: ADMIT Internal Medicine; ATTEND Internal Medicine
DX: R11.2 Nausea with vomiting, unspecified (principal); R19.7 Diarrhea, unspecified; R53.1 Weakness; R42 Dizziness and giddiness; R10.9 Unspecified abdominal pain; I10 Essential (primary) hypertension; F41.9 Anxiety disorder, unspecified; Z79.899 Other long term (current) drug therapy; Z88.0 Allergy status to penicillin; Z88.6 Allergy status to analgesic agent; Z66 Do not resuscitate; Z11.52 Encounter for screening for COVID-19
CPT/HCPCS: 96360; 96361 ×2; 99285; 36415; 97530 ×3; 97162; 97535; 97167; 80053; 83605; 83735; 85025; 81001; 87636; 74018; 70450; G0378 ×3